=== PATIENT | female | born 1965 | race Caucasian/White ===

== ENCOUNTER 2019-12-09 01:32 | Day surgery (SDC) | payer MEDICARE, SELFPAY ==
[2019-12-06 12:55] VITALS: BMI 37.2
[2019-12-09 09:29] VITALS: BP 140/93; PULSE 85; RESP 20; TEMP 36.7; O2SAT 98
[2019-12-09] MEDS: LACTATED RINGERS 1,000 ML 150 ML IV CONT (09:51)
--- NOTE | 2019-12-09 09:53 | PM.IMHP ---
H&P: HPI History of Present Illness Chief complaint: neoplasm screening Narrative: Hilda Doherty is a 54 year old female presents for colonoscopy. This will serve as her first one. She does report frequent diarrhea over the last year and rarely has a formed stool. She denies any foods that trigger the diarrhea. denies any antibiotics. denies melena, hematochezia. She is having some abdominal discomfort today after she began the colon prep. She does have a family hx of colon cancer in her maternal grandmother diagnose age 80. She does have GERD and has been on omeprazole 20 mg daily. This controls symptoms well. She denies any dysphasia, odynophagia, nausea or vomiting. Review of Systems Review of Systems: All systems reviewed & are unremarkable except as noted in HPI and below PMFSH Past Medical History Medical History (Updated 12/09/19 @ 10:00 by Renee Lincoln, [employer]) Bulging of intervertebral disc between L4 and L5 Cervical vertebral fusion Chronic pain Depression Deviated nasal septum Diarrhea Fibromyalgia GERD (gastroesophageal reflux disease) HTN (hypertension) Hypercholesterolemia Migraines Right-sided low back pain with sciatica Scoliosis Sleep apnea Surgical History Surgical History (Updated 12/09/19 @ 09:59 by Renee Lincoln, [employer]) H/O tubal ligation H/O: Hx of cholecystectomy Hx of neck surgery Family History Family History (Updated 12/09/19 @ 10:00 by Renee Lincoln, [employer] TE[employer]ER) Father Family history of coronary artery disease Acute myocardial infarction Mother Family history of scoliosis Grandparent Carcinoma of colon Other Family history of arthritis Family history of cardiovascular disease Hypertension Social History Social History Smoking status: Smoker, status unknown Second hand tobacco smoke exposure: Yes Smoking end date: 10/13/10 Alcohol intake: current Gender identity (if verbalized by the patient): Female Meds Home Medications and Allergies Home Medications Medication Instructions Recorded Confirmed Type amlodipine 10 mg tablet 10 mg PO DAILY #90 tablet 08/30/19 12/09/19 Rx venlafaxine 100 mg tablet 50 mg PO ONCE #45 tablet 08/30/19 12/09/19 Rx meloxicam 15 mg tablet 15 mg PO DAILY #90 tablet 11/05/19 12/09/19 Rx omeprazole 20 mg capsule,delayed 20 mg PO BID #60 cap 11/05/19 12/09/19 Rx release simvastatin 40 mg tablet 40 mg PO DAILY #90 tablet 11/05/19 12/09/19 Rx Allergies Allergy/AdvReac Type Severity Reaction Status Date / Time lamotrigine Allergy Unknown RASH Verified 12/09/19 09:33 risperidone Allergy Unknown rash Verified 12/09/19 09:33 sulfamethizole Allergy Unknown Unknown Verified 12/09/19 09:33 sulfamethoxazole Allergy Unknown itching Verified 12/09/19 09:33 trimethoprim Allergy Unknown Itching Verified 12/09/19 09:33 Vital Signs Vital Signs - 24 hr 12/09/19 09:29 Temperature 36.7 C Pulse Rate 85 Respiratory Rate 20 Blood Pressure 140/93 H Pulse Oximetry 98 Exam Const: General: cooperative, healthy appearing, comfortable, alert and awake Nutritional Appearance: average body habitus Orientation/consciousness: oriented to person, oriented to place, oriented to time and patient oriented x3 Limitations: no limitations HENMT: Head: normal to inspection and normocephalic Mouth: Yes Normal oral and palatal mucosa present and Yes moist mucous membranes Neck: Neck: normal visual inspection, supple and no JVD Carotids: no bruits Resp: Effort & Inspection: normal respiratory effort and no respiratory distress Auscultation: clear to auscultation bilaterally Cardio: Rate: regular rate Rhythm: regular rhythm Heart sounds: S1 normal heart sound present, S2 normal heart sound present, no gallops, no murmurs and no rubs GI: Inspection: normal to inspection GI Palp: No abdominal tenderness and No No hepatosplenomegaly present Percussion: Yes normal to percussio
--- NOTE | 2019-12-09 09:54 | WPDANESEPPF ---
Anes - Initial Pre Proc Eval Procedure: Operation Date: 12/09/19 09:30 Proposed Procedures p Screening Colonoscopy - James Haley DO Date/Time: 12/09/19 09:54 Surgeon: James Haley DO Pre Op Diagnosis: neoplasm screening Patient Data Age: 54 Gender: F Height: 5 ft 4 in Weight: 91.1 kg Last Vital Signs Temp 36.7 C 12/09/19 09:29 Pulse 85 12/09/19 09:29 Resp 20 12/09/19 09:29 BP 140/93 H 12/09/19 09:29 Pulse Ox 98 12/09/19 09:29 Allergies Allergy/AdvReac Type Severity Reaction Status Date / Time lamotrigine Allergy Unknown RASH Verified 12/09/19 09:33 risperidone Allergy Unknown rash Verified 12/09/19 09:33 sulfamethizole Allergy Unknown Unknown Verified 12/09/19 09:33 sulfamethoxazole Allergy Unknown itching Verified 12/09/19 09:33 trimethoprim Allergy Unknown Itching Verified 12/09/19 09:33 Home Medications Medication Instructions Recorded Confirmed Type amlodipine 10 mg tablet 10 mg PO DAILY #90 tablet 08/30/19 12/09/19 Rx venlafaxine 100 mg tablet 50 mg PO ONCE #45 tablet 08/30/19 12/09/19 Rx meloxicam 15 mg tablet 15 mg PO DAILY #90 tablet 11/05/19 12/09/19 Rx omeprazole 20 mg capsule,delayed 20 mg PO BID #60 cap 11/05/19 12/09/19 Rx release simvastatin 40 mg tablet 40 mg PO DAILY #90 tablet 11/05/19 12/09/19 Rx Patient hx anesthesia problems: none Family hx anesthesia problems: none PMFSH Past Medical History Medical History Bulging of intervertebral disc between L4 and L5 Cervical vertebral fusion Chronic pain Depression Deviated nasal septum Fibromyalgia GERD (gastroesophageal reflux disease) HTN (hypertension) Hypercholesterolemia Migraines Right-sided low back pain with sciatica Scoliosis Sleep apnea Surgical History Surgical History H/O tubal ligation H/O: Family History Family History Father Family history of coronary artery disease Acute myocardial infarction Mother Family history of scoliosis Other Family history of arthritis Family history of cardiovascular disease Hypertension Social History Social History Smoking status: Smoker, status unknown Second hand tobacco smoke exposure: Yes Smoking end date: 10/13/10 Alcohol intake: current Gender identity (if verbalized by the patient): Female Anes - Eval Final PreProcedure Day of Procedure 12/09/19 09:54 Patient weight: obese Heart: regular rate and rhythm Lungs: clear to auscultation Airway: Mallampati scale class II Neurological: alert and oriented Last oral intake: >/= 8 hours ASA classification: III Emergent: no Anesthetic plan: proceed Anesthesia type and monitoring: general GIVS and standard monitoring Informed Consent: The patient's anesthetic plan and its attendant risks and benefits were discussed with the patient/family/POA. Questions were solicited and answers provided to the satisfaction of the patient/family/POA.
[2019-12-09 10:35] VITALS: BP 109/73; PULSE 73; RESP 18; O2SAT 94
[2019-12-09 10:45] VITALS: BP 109/73; PULSE 66; RESP 15; O2SAT 96
[2019-12-09 10:55] VITALS: BP 119/79; PULSE 63; RESP 12; O2SAT 99
== END 2019-12-09 11:07 | disposition home or self-care (01) ==
PROVIDERS: PCP Family Medicine; Visit Provider Internal Medicine Gastroenterology
PROC: 0DJD8ZZ Inspection of Lower Intestinal Tract, Via Natural or Artificial Opening Endoscopic (ICD-10-PCS; CPT 45378; principal; 2019-12-09 09:30)
DX: Z12.11 Encounter for screening for malignant neoplasm of colon (principal); K52.9 Noninfective gastroenteritis and colitis, unspecified; D12.2 Benign neoplasm of ascending colon; K64.8 Other hemorrhoids; Z80.0 Family history of malignant neoplasm of digestive organs; I10 Essential (primary) hypertension; E78.00 Pure hypercholesterolemia, unspecified; G47.30 Sleep apnea, unspecified; K21.9 Gastro-esophageal reflux disease without esophagitis; M79.7 Fibromyalgia; F32.9 Major depressive disorder, single episode, unspecified; Z98.1 Arthrodesis status; G89.29 Other chronic pain
CPT/HCPCS: 45380; 88305; J2704; J7120

== ENCOUNTER 2021-02-04 12:05 | Emergency (ER) | payer MEDICARE, SELFPAY ==
--- NOTE | ~2021-02-04 | XR_ITS ---
EXAMINATION: XR finger 1st LT min 2V DATE: 02/04/2021 12:33 INDICATION: Left thumb injury. TECHNIQUE: 3 views of left thumb were obtained. COMPARISON: None. FINDINGS: Bone alignment is normal. No fracture. There is mild osteoarthritis of first carpometacarpa l joint and first metacarpophalangeal joint. IMPRESSION: 1. No fracture. Reviewed, dictated and finalized at location A. IMPRESSION: 1. No fracture.
[2021-02-04 12:16] VITALS: BP 137/82; PULSE 89; RESP 16; TEMP 36.4; O2SAT 99
--- NOTE | 2021-02-04 12:17 | ED.UPPEXIN ---
HPI - Extremity Injury (Upper) General Chief Complaint: Extremity Injury, Lower Stated Complaint: left thumb pain Time Seen by Provider: 02/04/21 12:17 Source: patient Mode of arrival: ambulatory Limitations: no limitations History of Present Illness HPI narrative: Hilda Doherty is a 55 yo female with a PMH of HTN, GERD, high cholesterol, depression, who comes with complaints of left thumb pain after playing with dog 5 days ago; states pain is 7/10 Related Data Home Medications Medication Instructions Recorded Confirmed meloxicam 15 mg PO DAILY 02/04/21 02/04/21 omeprazole 20 mg PO DAILY 02/04/21 02/04/21 Allergies Allergy/AdvReac Type Severity Reaction Status Date / Time lamotrigine Allergy Unknown RASH Verified 02/04/21 12:18 risperidone Allergy Unknown rash Verified 02/04/21 12:18 sulfamethizole Allergy Unknown Unknown Verified 02/04/21 12:18 sulfamethoxazole Allergy Unknown itching Verified 02/04/21 12:18 trimethoprim Allergy Unknown Itching Verified 02/04/21 12:18 Review of Systems Review of Systems: Narrative: CONSTITUTIONAL: Denies fever, chills, sweats. EYES: Denies visual changes, redness, discharge. ENT: Denies rhinorrhea, congestion, sore throat, otalgia. CARDIOVASCULAR: Denies chest pain, palpitations, edema. RESPIRATORY: Denies dyspnea, wheezing, cough GASTROINTESTINAL: Denies abdominal pain, nausea, vomiting, diarrhea. GENITOURINARY: Denies dysuria, hematuria, abnormal discharge SKIN: Denies rash or itching. NEUROLOGIC: Denies numbness, or focal weakness. PSYCHIATRIC: Denies anxiety or depression. Left thumb pain PMFSH Past Medical History Medical History Bulging of intervertebral disc between L4 and L5 Cervical vertebral fusion Chronic pain Depression Deviated nasal septum Diarrhea Fibromyalgia GERD (gastroesophageal reflux disease) HTN (hypertension) Hypercholesterolemia Migraines Right-sided low back pain with sciatica Scoliosis Sleep apnea Surgical History Surgical History H/O colonoscopy with polypectomy (~11/2019) Dr Haley at [place] H/O tubal ligation H/O: Hx of cholecystectomy Hx of neck surgery Family History Family History Father Family history of coronary artery disease Acute myocardial infarction Mother Family history of scoliosis Grandparent Carcinoma of colon Other Family history of arthritis Family history of cardiovascular disease Hypertension Social History Social History (Updated 02/04/21 @ 12:25 by Stefania Mcdowell CNP) Smoking status: Former smoker Second hand tobacco smoke exposure: Yes Smoking end date: 10/13/10 Alcohol intake: current Gender identity (if verbalized by the patient): Female Comments At time of signature, I agree with nursing past medical, surgical, social and family history. There is no relevant family history pertinent to the presenting complaint. Exam Narrative: Exam Narrative: GENERAL: This is a well-nourished, well-developed patient, in mild distress. HEAD: normocephalic, atraumatic. EYES: Sclera clear/white. Vision is grossly intact. EARS: External ears normal. Hearing grossly intact. NOSE: External nose normal without nasal discharge, nares without redness, no rhinorrhea. THROAT: Mucous membranes moist, NECK: Neck supple, non-tender CARDIOVASCULAR: Regular rate and rhythm without murmurs, gallops, or rubs. RESPIRATORY: Clear to auscultation. Breath sounds equal bilaterally. No wheezes, rales, or rhonchi. GASTROINTESTINAL: Abdomen soft, non-tender, SKIN: warm, intact with no suspicious lesions or rash, good texture and turgor. NEURO: awake, alert, and oriented to person, place and time. There were no obvious focal neurologic abnormalities. Steady gait EXTREMITIES: Normal range of motion. L thunb pain from remote injury,able to move sanchez
== END 2021-02-04 13:13 | disposition home or self-care (01) ==
PROVIDERS: Emergency Provider Nurse Practitioner
DX: S69.92XA Unspecified injury of left wrist, hand and finger(s), initial encounter (principal); X58.XXXA Exposure to other specified factors, initial encounter; Z87.891 Personal history of nicotine dependence; F32.9 Major depressive disorder, single episode, unspecified; M79.7 Fibromyalgia; K21.9 Gastro-esophageal reflux disease without esophagitis; I10 Essential (primary) hypertension; E78.00 Pure hypercholesterolemia, unspecified; M41.9 Scoliosis, unspecified; G47.30 Sleep apnea, unspecified
CPT/HCPCS: 29130; 73140; 99213; G0463

== ENCOUNTER 2021-02-28 12:49 | Emergency (ER) | payer MEDICARE, SELFPAY ==
--- NOTE | ~2021-02-28 | XR_ITS ---
EXAMINATION: XR shoulder RT min 2V DATE: 02/28/2021 13:46 INDICATION: Right shoulder injury and pain. TECHNIQUE: 4 views of right shoulder were obtained. COMPARISON: Right shoulder radiographs 08/19/2011 FINDINGS: Bone alignment is normal. No fracture. Glenohumeral joint is normal. There is moderate acro mioclavicular joint osteoarthritis. IMPRESSION: 1. Moderate acromioclavicular joint osteoarthritis. Reviewed, dictated and finalized at location A.
[2021-02-28 13:14] VITALS: BP 134/81; PULSE 81; RESP 18; TEMP 36.7; O2SAT 97
--- NOTE | 2021-02-28 14:10 | ED.GENADULT ---
HPI - General Adult General Chief complaint: Extremity Injury, Upper Stated complaint: hit right shoulder on wall- sharp pain 8 days ago Time Seen by Provider: 02/28/21 13:20 Source: patient and RN notes reviewed Mode of arrival: ambulatory Limitations: no limitations History of Present Illness HPI narrative: Patient 55-year-old female who presents with right shoulder pain has been present now for 1 week after striking it on the shoulder notes aching pain which has not improved has not been seen for this complaint denies other injuries presents in no distress Related Data Home Medications Medication Instructions Recorded Confirmed meloxicam 15 mg PO DAILY 02/04/21 02/08/21 Allergies Allergy/AdvReac Type Severity Reaction Status Date / Time lamotrigine Allergy Unknown RASH Verified 02/08/21 09:41 risperidone Allergy Unknown rash Verified 02/08/21 09:41 sulfamethizole Allergy Unknown Unknown Verified 02/08/21 09:41 sulfamethoxazole Allergy Unknown itching Verified 02/08/21 09:41 trimethoprim Allergy Unknown Itching Verified 02/08/21 09:41 Review of Systems Review of Systems: All systems reviewed & are unremarkable except as noted in HPI and below PMFSH Past Medical History Medical History Bulging of intervertebral disc between L4 and L5 Cervical vertebral fusion Chronic pain Depression Deviated nasal septum Diarrhea Fibromyalgia GERD (gastroesophageal reflux disease) HTN (hypertension) Hypercholesterolemia Migraines Right-sided low back pain with sciatica Scoliosis Sleep apnea Surgical History Surgical History H/O colonoscopy with polypectomy (~11/2019) Dr Haley at [place] H/O tubal ligation H/O: Hx of cholecystectomy Hx of neck surgery Family History Family History Father Family history of coronary artery disease Acute myocardial infarction Mother Family history of scoliosis Grandparent Carcinoma of colon Other Family history of arthritis Family history of cardiovascular disease Hypertension Social History Social History Smoking status: Former smoker Second hand tobacco smoke exposure: Yes Smoking end date: 10/13/10 Alcohol intake: current Gender identity (if verbalized by the patient): Female Exam Narrative: Exam Narrative: GENERAL: Well-appearing, well-nourished, and in no acute distress. HEAD: Normocephalic, atraumatic. EYES: PERRLA and EOMI. ENT: Nares clear, no rhinorrhea or epistaxis. Mucous membranes moist. CHEST: Clear to auscultation. No respiratory distress. No wheezes rales or rhonchi HEART: Regular rate and rhythm. No murmur heard. Normal peripheral pulses. EXTREMITIES: Tenderness of the anterior right shoulder no deformities noted SKIN: Warm, dry, no rash. NEURO: No focal deficits. Alert and oriented x3. Neurovascularly intact. Capillary refill less than 2 seconds PSYCH: Normal mood and affect. Course Course Emergency Course: Patient evaluated no high risk changes in the imaging will be referred to orthopedist for further evaluation Vital Signs Vital signs: Vital Signs Temperature 98.1 F 02/28/21 13:14 Pulse Rate 81 02/28/21 13:14 Respiratory Rate 18 02/28/21 13:14 Blood Pressure 134/81 02/28/21 13:14 Pulse Oximetry 97 02/28/21 13:14 Temperature 98.1 F 02/28/21 13:14 Pulse Rate 81 02/28/21 13:14 Respiratory Rate 18 02/28/21 13:14 Blood Pressure 134/81 02/28/21 13:14 Pulse Oximetry 97 02/28/21 13:14 Medical Decision Making [facility] Narrative Medical decision making narrative: Patients injury or pain is consistent with musculoskeletal etiology. No signs of neurological or vascular compromise on exam. Compartments and tisues are soft without signs of compartment syndrome. Pain is felt
== END 2021-02-28 14:37 | disposition home or self-care (01) ==
PROVIDERS: Emergency Provider Emergency Medicine; PCP Family Medicine
DX: S49.91XA Unspecified injury of right shoulder and upper arm, initial encounter (principal); X58.XXXA Exposure to other specified factors, initial encounter; M79.7 Fibromyalgia; K21.9 Gastro-esophageal reflux disease without esophagitis; I10 Essential (primary) hypertension; M41.9 Scoliosis, unspecified; G47.30 Sleep apnea, unspecified
CPT/HCPCS: 73030; 99283

== ENCOUNTER 2023-05-20 17:27 | Emergency (ER) | payer MEDICARE, SELFPAY ==
--- NOTE | ~2023-05-20 | XR_ITS ---
EXAM: XR finger 1st LT min 2V DATE: 05/20/2023 17:45 HISTORY: base left thumb pain s/p fall 3 days ago . COMPARISON: 02/04/2021. FINDINGS: Decreased mineralization. No fracture or dislocation. No lytic or blastic lesion. Mild sca ttered degenerative changes. No erosion or periosteal change. Soft tissues within normal limits. IMPRESSION: No acute osseous finding in the left thumb. Reviewed, dictated and finalized at location K.
[2023-05-20 17:36] VITALS: BP 130/78; PULSE 80; RESP 16; TEMP 37.4; O2SAT 99
--- NOTE | 2023-05-20 17:41 | ED.UPPEXIN ---
HPI - Extremity Injury (Upper) General Chief Complaint: Extremity Injury, Upper Stated Complaint: Left Hand Thumb Pain Source: patient Mode of arrival: ambulatory Limitations: no limitations History of Present Illness HPI narrative: 57 y/o female presented for c/o left thumb pain after injury 3 nights ago. [place], reaching her left arm behind her to break the fall. Reports swelling and bruising to the base of the thumb, with limited ROM due to pain. Gripping movements cause pain. Reports pain shoots to mid forearm. Denies numbness, tingling, or weakness of the hand. Taking meloxicam as scheduled. Has added Tylenol for pain. Related Data Allergies Allergy/AdvReac Type Severity Reaction Status Date / Time lamotrigine Allergy Unknown RASH Verified 05/20/23 17:44 risperidone Allergy Unknown rash Verified 05/20/23 17:44 sulfamethizole Allergy Unknown Unknown Verified 05/20/23 17:44 sulfamethoxazole Allergy Unknown itching Verified 05/20/23 17:44 trimethoprim Allergy Unknown Itching Verified 05/20/23 17:44 Review of Systems Review of Systems: CONSTITUTIONAL: Denies body aches, fever, chills EYES: Denies visual changes ENT: Denies rhinorrhea, congestion CARDIOVASCULAR: Denies chest pain, palpitations, or edema. RESPIRATORY: Denies cough or dyspnea. GASTROINTESTINAL: Denies abdominal pain, nausea, vomiting, or diarrhea. SKIN: Denies rash, itching, or wounds. MUSCULOSKELETAL: Reports left thumb pain denies back pain, or myalgia. NEUROLOGIC: Denies headache, numbness, tingling, or weakness. PSYCH: Denies depression or anxiety. All systems reviewed & are unremarkable except as noted in HPI and below PMFSH Past Medical History Medical History Anxiety Bulging of intervertebral disc between L4 and L5 Cervical spondylosis with radiculopathy Cervical vertebral fusion Depression Deviated nasal septum Fibromyalgia GERD (gastroesophageal reflux disease) HTN (hypertension) Hypercholesterolemia Impingement syndrome of right shoulder Intermittent low back pain Migraines Right-sided low back pain with sciatica Scoliosis Sleep apnea Vitamin D deficiency Wears glasses Surgical History Surgical History H/O colonoscopy with polypectomy (~11/2019) Dr Haley at [place] H/O tubal ligation (Unknown) H/O: (~1995) History of fusion of cervical spine (~2007) History of left knee surgery (~08/2018) Chondroplasty of the patella, trochlea, and medial femoral condyle, Lateral retinacular release. History of nasal septoplasty (~11/2014) History of right knee surgery (~10/2015) Right knee arthroscopy with major synovectomy, chondroplasty, and lateral patellar release. Hx of cholecystectomy (~2011) Family History Family History Father Family history of coronary artery disease Acute myocardial infarction Mother Family history of scoliosis Grandparent Carcinoma of colon Other Family history of arthritis Family history of cardiovascular disease Hypertension Social History Social History Smoking packs per day: 0.25 Smoking cigarettes per day: 5.0 Smoking status: Former smoker Second hand tobacco smoke exposure: Yes Smoking end date: 12/03/20 Alcohol intake: never Substance use: current Substance use type: marijuana Other substance usage details: Medical card Lack of Transportation: No Lack of Food: Never True Current Housing: I Have Housing Concerned About Future Housing: No Difficulty Paying Gas/Electric Bills: No Difficulty Paying for Meds: No Currently Unemployed: No Education: High School Diploma/GED Difficulty w/ Childcare or Family Care: No Living arrangements: with family Additional living arrangements comments:
[2023-05-20 17:44] VITALS: BP 130/78; PULSE 80; RESP 16; TEMP 37.4; O2SAT 99
== END 2023-05-20 18:22 | disposition home or self-care (01) ==
PROVIDERS: Emergency Provider Nurse Practitioner Family; PCP Family Medicine
DX: S63.602A Unspecified sprain of left thumb, initial encounter (principal); W19.XXXA Unspecified fall, initial encounter; Y93.11 Activity, swimming; M79.7 Fibromyalgia; K21.9 Gastro-esophageal reflux disease without esophagitis; I10 Essential (primary) hypertension; E78.00 Pure hypercholesterolemia, unspecified; M41.9 Scoliosis, unspecified; Z87.891 Personal history of nicotine dependence; F12.90 Cannabis use, unspecified, uncomplicated
CPT/HCPCS: 73140; 99213; G0463

== ENCOUNTER → 2023-06-09 10:09 | Outpatient (CLI) | payer MEDICARE, SELFPAY ==
--- NOTE | ~2023-06-09 | XR_ITS ---
XR foot LT 2V DATE: 06/09/2023 10:19 INDICATION: Injury. Fifth toe pain. TECHNIQUE: 3 views COMPARISON: None FINDINGS: Prominent plantar calcaneal enthesopathy. Minimal osteoarthritis at the first metatarsophalangeal joint. No fracture or dislocation, periosteal reaction or bone destruction is detected. IMPRESSION: Prominent plantar calcaneal enthesopathy No fracture or dislocation Reviewed, dictated and finalized at location B.
== END ==
PROVIDERS: PCP Nurse Practitioner Family; Visit Provider Nurse Practitioner Family
DX: S99.922A Unspecified injury of left foot, initial encounter (principal); X58.XXXA Exposure to other specified factors, initial encounter; M77.32 Calcaneal spur, left foot
CPT/HCPCS: 73620

== ENCOUNTER 2023-08-21 13:09 | Outpatient (CLI) | payer MEDICARE, SELFPAY ==
--- NOTE | ~2023-08-21 | MR_ITS ---
EXAMINATION: MR hand LT wo con DATE: 08/21/2023 14:51 INDICATION: Left hand pain with sprain of the metacarpophalangeal joint and rupture of the ulnar lyndon ateral ligament. TECHNIQUE: Magnetic resonance imaging (MRI) of the right hand was performed without intravenous contr ast . Sequences included large [id number] coronal T1-weighted FSE and T2-weighted FS FSE including the entire hand. Additional smaller field of view imaging was obtained centered on and aligned with the axis of the left thumb including axial, sagittal and coronal T1-weighted FSE, axial and sagittal T2-weighted FS FSE and coronal PD-weighted FS FSE . COMPARISON: None FINDINGS: Thickening and increased signal of the ulnar collateral ligament at the first metacarpophalangeal kinjal nt. Prominent increased signal approaching fluid intensity along the proximal phalangeal 7 insertion of the ligament consistent with at least high-grade partial if not complete tear. The ligament which appears thickened and somewhat lax on the coronal images does not appear to reflect approximately and remains deep to the intact abductor aponeurosis. The radial collateral ligament complex at the first metacarpophalangeal joint remains normal. As do on the larger [id number] images the collateral li gament complex at the remaining metacarpophalangeal joints and the interphalangeal joints. Bone align ment is normal with normal marrow signal throughout. Joint spaces appear relatively preserved. The vi sualized portions of the flexor and extensor tendons are normal with no tendinopathy, tear or tenosyn ovitis. Physiologic amount fluid in the joint spaces. There is mild likely reactive edema in the subc utaneous fat surrounding the first metacarpophalangeal joint. IMPRESSION: 1. Likely high-grade partial if not complete tear at the distal margin of the first metacarpophalange al ulnar collateral ligament but which remains in normal position with no Stenner lesion. Reviewed, dictated and finalized at location A. OR COMMUNICATIONS ENGINEER IMPRESSION: 1. Likely high-grade partial if not complete tear at the distal margin of the f irst metacarpophalangeal ulnar collateral ligament but which remains in normal position with no Stenner lesion.
== END 2023-08-21 13:10 | disposition home or self-care (01) ==
PROVIDERS: PCP Nurse Practitioner Family; Visit Provider Orthopaedic Surgery
DX: S63.659A Sprain of metacarpophalangeal joint of unspecified finger, initial encounter (principal); X58.XXXA Exposure to other specified factors, initial encounter
CPT/HCPCS: 73218

== ENCOUNTER 2023-09-19 08:47 | Outpatient (CLI) | payer MEDICARE, SELFPAY ==
--- NOTE | 2023-09-19 08:55 | ECG_ITS ---
Measurements Intervals Treichlers Rate: 69 P: 54 NV: 140 QRS: 33 QRSD: 102 T: 55 QT: 398 QTc: 428 Interpretive Statements SINUS RHYTHM NO PREVIOUS ECG AVAILABLE FOR COMPARISON Electronically Signed On 09-19-2023 10:46:28 DERRICK BARGE OPERATOR by Miguel Ángel Lr M.D.
== END 2023-09-19 08:48 | disposition home or self-care (01) ==
LOC: ANHSURGERY 08:52
PROVIDERS: PCP Nurse Practitioner Family; Visit Provider Orthopaedic Surgery
DX: I10 Essential (primary) hypertension (principal); Z01.818 Encounter for other preprocedural examination
CPT/HCPCS: 93005

== ENCOUNTER 2023-09-22 02:55 | Day surgery (SDC) | payer MEDICARE, SELFPAY ==
[2023-09-18 14:29] VITALS: BMI 35.5
--- NOTE | 2023-09-18 14:39 | PC.NURSE ---
Report to the Outpatient Waiting Room, entrance under the green pavilion located off [facility], at time _0600_ on date _09/22/23_. Planned Procedure Time: _0730_. Time changes happen often and if your time is changed the preop area will call you the afternoon before. - You and your visitor will be asked to self-screen and do not enter if you have any COVID symptoms. - A mask is optional within the hospital at this time. Patients may have clear liquids (water, carbonated beverages, clear teas, apple juice) until 3 hours prior to surgery with a maximum of 20 ounces. - No food from midnight until time of surgery - Infants may have breast milk until 4 hours before surgery, infant formula 6 hours prior to surgery. - Children will be allowed to drink immediately following surgery. If applicable, please bring a bottle or sippy cup to assist with drinking. Juice, water, soda, and popsicles are readily available. For infants on formula, please bring formula the day of surgery. Pacifiers are allowed. Take the following medications with a SIP of water the morning of surgery: ____AMLODIPINE, XANAX AND VENLAFEXINE IF NEEDED DO NOT STOP ANY OF YOUR OTHER PRESCRIPTION MEDICATIONS PRIOR TO SURGERY ?EXCEPT THE FOLLOWING Medications to discontinue per physician MELOXICAM 1 WK Date to take last dose Please no make-up, nail kyrgyz, hairspray, perfume, deodorant, or body powder the day of surgery. No jewelry (including any body piercings) or valuables the day of surgery, leave them at home. Please take a shower or bath the night before, or the morning of, surgery with an antibacterial soap. Wear comfortable, loose fitting clothing. Children are encouraged to wear pajamas. - Jewelry must be removed prior to entering the operating room. Rings and piercings that are not removed may be cut off. - The hospital will not accept responsibility for valuables. - Please leave all valuables, including medications, at home the day of surgery. If you are going home after surgery, a licensed grab driver must drive you home. - NO public transportation without another adult if you receive anesthesia. - We recommend that an adult stay with you for 24 hours following discharge. - We also recommend that you do not drive, make important decision, drink alcoholic beverages, or take any drugs that were not prescribed by your health care provider for at least 24 hours after your discharge time. For Pediatric surgeries, we recommend two adults accompany the child home. Follow any additional instructions given to you from your surgeon. If you or anyone in your household have experienced Covid symptoms in the past week, please notify your surgeon or the nurse liaison at the phone number below for possible testing. Telephone instructions given to PATIENT_and asked if any additional questions and then verbalized understanding. Patient advised to call surgeon office or pre surgery nurse liaison [phone] if any additional questions.
[2023-09-22] VITALS (9 sets, daily range): BP systolic 109–139; BP diastolic 61–98; PULSE 66–78; RESP 13–17; TEMP 36.2–36.4; O2SAT 96–99
[2023-09-22] MEDS: LACTATED RINGERS 1,000 ML 30 ML IV CONT ×2 (06:30→08:59)
[2023-09-22] MEDS: ACETAMINOPHEN 500 MG TABLET 1000 MG PO (06:34)
[2023-09-22] MEDS: KETOROLAC 15 MG/ML VIAL (*BKC) IV PUSH (06:34)
--- NOTE | 2023-09-22 06:56 | WPDANESEPPF ---
Anes - Initial Pre Proc Eval Procedure: Operation Date: 09/22/23 07:30 Proposed Procedures p Left Thumb Ulnar Collateral Ligament Reconstruction - Arpan Mckeon MD Date/Time: 09/22/23 06:56 Surgeon: Arpan Mckeon MD Pre Op Diagnosis: Lt Thumb U C L Tear Patient Data Age: 57 Gender: F Height: 1.63 m Weight: 94.3 kg Last Vital Signs Temp 36.2 C L 09/22/23 06:15 Pulse 78 09/22/23 06:15 Resp 16 09/22/23 06:15 BP 139/98 H 09/22/23 06:15 Pulse Ox 96 09/22/23 06:15 O2 Del Method Room Air 09/22/23 06:15 Allergies Allergy/AdvReac Type Severity Reaction Status Date / Time lamotrigine Allergy Unknown RASH Verified 09/22/23 06:20 risperidone Allergy Unknown rash Verified 09/22/23 06:20 sulfamethizole Allergy Unknown Unknown Verified 09/22/23 06:20 sulfamethoxazole Allergy Unknown itching Verified 09/22/23 06:20 trimethoprim Allergy Unknown Itching Verified 09/22/23 06:20 Home Medications Medication Instructions Recorded Confirmed Type amlodipine 10 mg tablet 10 mg PO DAILY #90 tabs 03/25/23 09/22/23 Rx meloxicam 15 mg tablet 15 mg PO DAILY #90 tabs 03/25/23 09/22/23 Rx simvastatin 40 mg tablet 40 mg PO QHS #90 tabs 03/25/23 09/22/23 Rx alprazolam 0.25 mg tablet (Xanax) 0.25 mg PO DAILY #30 tabs 06/09/23 09/22/23 Rx omeprazole 20 mg capsule,delayed 20 mg PO DAILY #90 caps 06/09/23 09/22/23 Rx release venlafaxine 100 mg tablet 100 mg PO DAILY #90 tabs 09/01/23 09/22/23 Rx Patient hx anesthesia problems: none Family hx anesthesia problems: none Results Review: All pre-operative results and documents have been reviewed as part of the pre-operative evaluation. [facility] Past Medical History Medical History Anxiety Bulging of intervertebral disc between L4 and L5 Cervical spondylosis with radiculopathy Cervical vertebral fusion Complete tear of ligament of thumb Depression Deviated nasal septum Fibromyalgia GERD (gastroesophageal reflux disease) HTN (hypertension) Hypercholesterolemia Impingement syndrome of right shoulder Intermittent low back pain Migraines Right-sided low back pain with sciatica Rupture of UCL of left thumb Rupture of ulnar collateral ligament of thumb Scoliosis Sleep apnea Vitamin D deficiency Wears glasses Surgical History Surgical History H/O colonoscopy with polypectomy (~11/2019) Dr Haley at [place] H/O tubal ligation (Unknown) H/O: (~1995) History of fusion of cervical spine (~2007) History of left knee surgery (~08/2018) Chondroplasty of the patella, trochlea, and medial femoral condyle, Lateral retinacular release. History of nasal septoplasty (~11/2014) History of right knee surgery (~10/2015) Right knee arthroscopy with major synovectomy, chondroplasty, and lateral patellar release. Hx of cholecystectomy (~2011) Family History Family History Father Family history of coronary artery disease Acute myocardial infarction Mother Family history of scoliosis Grandparent Carcinoma of colon Other Family history of arthritis Family history of cardiovascular disease Hypertension Social History Social History Social History: Caffeine- Smoking packs per day: 0.5 Smoking cigarettes per day: 10.0 Years smoked: 34 Smoking pack-years: 17.00 Smoking status: Former smoker Tobacco type: cigarettes and e-cigarettes/vaping Second hand tobacco smoke exposure: Yes Smoking end date: 12/03/20 Additional smoking assessment comments: STOPPED CIGARETTES 2019, CURRENT VAPE USER Alcohol intake: current Alcohol use details: RARE Substance use: current Substance use type: marijuana Other substance usage details: 3-4 TIMES A DAY Lack of Transportation: No Lack of Food: Never True Cur
--- NOTE | 2023-09-22 07:28 | WPDHPUPDATE1 ---
History and Physical Update Update Date/Time: 09/22/23 07:28 History and Physical has been reviewed, including an updated exam of the patient. There are NO changes in the patient's condition. Risks, benefits, and alternatives have been discussed and questions answered. Patient agrees to proceed with procedure.
[2023-09-22] MEDS: ceFAZolin 2 GM/D5W 50 ML 2 GM/50 ML BAG IVPB (07:50)
[2023-09-22] MEDS: BUPivacaine HCL 0.5% PF 30 ML VIAL INFILTRATE (07:52)
--- NOTE | 2023-09-22 09:02 | W.PM.PROC2 ---
Procedure Note - Detailed Date of Procedure 09/22/23 Pre-op Diagnosis Lt Thumb U C L Tear Post-op Diagnosis Same Procedure Performed Reconstruction left thumb ulnar collateral ligament metacarpal phalangeal joint. Surgeon Arpan Mckeon MD Engineer [employer] Maintenance 1[employer] perinatal breastfeeding assistant Anesthesia General Indications 57-year-old woman with fall and injury to the left thumb. MRI demonstrates tear of the ulnar collateral ligament. Pain and instability noted on exam. Presents for operative treatment. Findings Disruption of the ulnar collateral ligament from the proximal phalanx of the left thumb. Description of Procedure Patient identified in the preoperative holding. Informed consent given. Operative extremity marked. Patient received intravenous antibiotics. Patient brought to the operating room where underwent general anesthetic by anesthesia team. Positioned supine on operating room table. Time-out performed confirming the patient, site of the surgery and the plan. Left hand prepped draped usual sterile surgical fashion ChloraPrep skin solution. Hand exsanguinated and arm tourniquet inflated to 250 mmHg. Local anesthetic with 0.5% Marcaine plain. Longitudinal incision made on the ulnar aspect of the thumb metacarpophalangeal joint with a 15 blade knife. Hemostasis controlled electrocautery. Dissection carried down to the capsule which was incised in line with the skin incision. This allowed visualization of the ulnar collateral ligament which was torn and disrupted from the insertion on the proximal phalanx. Scar tissue was sharply debrided. The wound was inspected and noted otherwise be intact. Reconstruction ligament was then performed. 2.5 mm drill for the proximal phalanx and the suture anchor SwiveLock was placed with the suture and internal brace tape. Suture was passed through the ligament and direct repair back to the proximal phalanx was performed. The internal brace was then brought over the ligament and attached to the metacarpal bone with 3.0 mm SwiveLock. Good fixation noted. The joint was held in approximately 30? of flexion for the repair. Joint was noted to be stable. Wound thoroughly irrigated the capsule closed with 3-0 Monocryl interrupted suture. Subcutaneous tissue repaired with 3-0 Monocryl interrupted suture and skin repaired with Dermabond. Sterile dressing applied. Tourniquet released, good capillary refill noted in the thumb and fingers. The patient was then woken from anesthesia, extubated and taken to the recovery room in stable condition. All sponge, needle, instrument counts were correct at the end of the case. Implants SwiveLock anchor x2 Estimated Blood Loss 5 Tourniquet Time 58 Drains No Packing No Pathology None sent Complications None Condition Stable Disposition PACU [facility] Billing Surgery - Charge Forward: Surgery Billing ([id number])
[2023-09-22] MEDS: oxyCODONE HCL (*CRX) 5 MG TAB IR PO (10:00)
== END 2023-09-22 10:52 | disposition home or self-care (01) ==
PROVIDERS: PCP Nurse Practitioner Family; Visit Provider Orthopaedic Surgery
PROC: (CPT 26541; principal; 2023-09-22 07:30)
DX: S63.642A Sprain of metacarpophalangeal joint of left thumb, initial encounter (principal); S53.32XA Traumatic rupture of left ulnar collateral ligament, initial encounter; W16.112A Fall into natural body of water striking water surface causing other injury, initial encounter; I10 Essential (primary) hypertension; E78.00 Pure hypercholesterolemia, unspecified; F41.9 Anxiety disorder, unspecified; F32.A Depression, unspecified; K21.9 Gastro-esophageal reflux disease without esophagitis; Z98.1 Arthrodesis status; F17.290 Nicotine dependence, other tobacco product, uncomplicated; F12.90 Cannabis use, unspecified, uncomplicated; E66.9 Obesity, unspecified; Z68.35 Body mass index [BMI] 35.0-35.9, adult
CPT/HCPCS: 26541; 93005; A9270; C1713; J0690; J1100; J1885; J2250; J2371; J2405; J2704; J7120

== ENCOUNTER 2024-12-24 13:46 | Emergency (ER) | payer MEDICARE, SELFPAY ==
--- NOTE | 2024-12-24 13:52 | ED_ITS ---
HPI - Ear Problem General Chief complaint: Ear Stated complaint: Ear Time Seen by Provider: 12/24/24 14:05 Source: patient Mode of arrival: ambulatory Limitations: no limitations History of Present Illness HPI Narrative: Hilda is a 59-year-old female patient presenting to the clinic today with complaints of left ear pain x3 days. States she is having swelling behind her ear with some pain/pressure to the side of her head. No fevers, chills, body aches. Related Data Allergies Allergy/AdvReac Type Severity Reaction Status Date / Time lamotrigine Allergy Unknown RASH Verified 10/22/24 09:57 risperidone Allergy Unknown rash Verified 10/22/24 09:57 sulfamethizole Allergy Unknown Unknown Verified 10/22/24 09:57 sulfamethoxazole Allergy Unknown itching Verified 10/22/24 09:57 trimethoprim Allergy Unknown Itching Verified 10/22/24 09:57 Review of Systems Review of Systems: Pertinent positives per HPI. Patient denies any fever, chills, rash, headache, visual changes, dizziness, cough, shortness of breath, chest pain, palpitations, nausea, vomiting, diarrhea, constipation, abdominal pain, or any urinary issues. [facility] Past Medical History Medical History BMI over 35 Fibromyalgia Tobacco abuse Sprain of deltoid ligament of left ankle, initial encounter Sleep apnea in adult RLQ abdominal pain Right ankle instability Peroneal tendinitis of right lower extremity Patellar tendinitis of right knee Paronychia of finger of right hand Pain of left clavicle Other specified depressive episodes Other chronic pain Obesity, unspecified (12/04/16) Nasal sore Morbid (severe) obesity due to excess calories (09/04/16) Left elbow pain Internal derangement of right knee (10/31/15) Hyperlipidemia, unspecified History of shingles Frequent headaches Encounter for other specified surgical aftercare Effusion of right knee Dietary counseling and surveillance (08/10/15) Depression with anxiety Colon cancer screening Chronic pain of right ankle Chondromalacia of left knee Breast cancer screening Benign essential hypertension Atelectasis of both lungs Aftercare following surgery of the musculoskeletal system Acute pain of left shoulder Rupture of ulnar collateral ligament of thumb Rupture of UCL of left thumb Complete tear of ligament of thumb Vitamin D deficiency Intermittent low back pain Cervical spondylosis with radiculopathy Anxiety Wears glasses Impingement syndrome of right shoulder Right-sided low back pain with sciatica Depression Bulging of intervertebral disc between L4 and L5 Scoliosis Cervical vertebral fusion GERD (gastroesophageal reflux disease) Sleep apnea Hypercholesterolemia HTN (hypertension) Fibromyalgia Migraines Deviated nasal septum Surgical History Surgical History History of thumb surgery History of nasal septoplasty (~11/2014) History of right knee surgery (~10/2015) Right knee arthroscopy with major synovectomy, chondroplasty, and lateral patellar release. History of left knee surgery (~08/2018) Chondroplasty of the patella, trochlea, and medial femoral condyle, Lateral retinacular release. History of fusion of cervical spine (~2007) H/O colonoscopy with polypectomy (~11/2019) Dr Haley at [facility] of cholecystectomy (~2011) H/O tubal ligation (Unknown) H/O: (~1995) Family History Family History Father Family history of coronary artery disease Acute myocardial infarction Mother Family history of scoliosis Tobacco abuse Grandparent No problems noted. Sibling No problems noted. Other Family history of arthritis Family history of cardiovascular disease Hypertension Social History Social History Social History: Caffeine- Smoking packs per day: 0.5 Smoking cigarettes per day: 10.0 Years smoked: 34 Smoking pack-years: 17.00 Smoking status: Former smoker Tobacco type: cigarettes and e-cigarettes/vaping Second hand tobacco smoke exposure: Yes Smoking end date: 12/03/20 Additional smoking assessment comments: STOPPED CIGARETTES 2019, CURRENT VAPE USER Alcohol intake: current Alcohol use details: RARE Substance use: current Substance use type: marijuana Other substance usage details: 3-4 TIMES A DAY Do You Feel Safe in your Home?: Yes Lack of Transportation: No Lack of Food: Never True Current Housing: I Have Housing Concerned About Future Housing: No Difficulty Paying Gas/Electric Bills: No Difficulty Paying for Meds: No Currently Unemployed: No Education: High School Diploma/GED Difficulty w/ Childcare or Family Care: No Living arrangements: with family Additional living arrangements comments: Occupation/Education: unemployed Gender identity (if verbalized by the patient): Female Sexual Orientation (if Verbalized by the Patient): Straight or Heterosexual Agree to blood products: Yes Comments At the time of my signature, I reviewed and agree with the nursing past medical, surgical, social, and family history. There is no relevant family history pertinent to the patient complaint. Exam Narrative: General: Well-developed, well nourished, in no apparent distress Head: Normocephalic, atraumatic Eyes: Pupils equally round and reactive to light bilaterally, EOM intact, sclera and conjunctive clear, no discharge, lids normal Ears: Right TMs intact and clear, left TM intact, bulging, congested, ear canals clear, no drainage, grossly hearing normal. Nose: Nares patent, no discharge, no inflammation, no sinus tenderness. Mouth: Oral pharynx without lesions or masses, good dentition, MMM. Neck: Supple, trachea midline, no enlargement of anterior or posterior cervical nodes, no thyroid masses or goiter palpable. Cardio: Regular rate and rhythm, s1 and s2 normal, no murmur appreciated. Resp: Clear to auscultation bilaterally, no rhonchi, rales, wheezing or rubs Course Course Emergency Course: Portions of this record may have been created with voice recognition software. Level of Care: Express Care Visit Vital Signs Vital signs: Vital signs reviewed Medical Decision Making [facility] Narrative Medical decision making narrative: At the time of visit patient is resting comfortably on the exam table. Patient appears to be nontoxic. Plan: I suspect patient has left otalgia/post auricle lymphadenopathy. Prescription for prednisone was sent to the pharmacy. No sign of infection. Supportive measures were discussed with the patient and they voiced understanding discharge instructions and agrees to treatment plan. Return precautions reviewed Differential Diagnosis Differential Diagnosis: Otitis media, otitis externa, eustachian tube dysfunction, cerumen impaction, upper respiratory infection, serous otitis Discharge Plan Discharge Clinical Impression: Acute pain of left ear, Posterior auricular pain of left ear Patient Disposition: Home, Self-Care Condition: Stable Instructions: Antibiotic Form, Earache (ED) Additional Instructions: Take any prescribed medications only as directed- Tylenol/motrin as needed for pain May use heating pad to alleviate pain Avoid bottle propping if ear infection in . If you get recurrent ear infections it may be warranted to follow up with ENT. Follow up with your PCP in 3-5 days if symptoms persist. Patient Language: Mongolian Prescriptions: New prednisone 20 mg tablet 40 mg PO DAILY 5 Days Qty: 10 0RF No Action omeprazole 20 mg capsule,delayed release(DR/EC) 20 mg PO DAILY Qty: 90 1RF trazodone 100 mg tablet 100 mg PO QHS PRN (Reason: sleep) Qty: 30 2RF alprazolam [Xanax] 0.25 mg tablet 0.25 mg PO DAILY Qty: 30 0RF venlafaxine 100 mg tablet 100 mg PO DAILY Qty: 90 0RF meloxicam 15 mg tablet See Rx Instructions .ROUTE .COMPLEX Qty: 90 1RF Dose Instruction: TAKE 1 TABLET BY MOUTH DAILY Rx Instructions: TAKE 1 TABLET BY MOUTH DAILY simvastatin 40 mg tablet See Rx Instructions .ROUTE .COMPLEX Qty: 90 1RF Dose Instruction: TAKE 1 TABLET BY MOUTH EVERY DAY AT BEDTIME Rx Instructions: TAKE 1 TABLET BY MOUTH EVERY DAY AT BEDTIME amlodipine 10 mg tablet See Rx Instructions .ROUTE .COMPLEX Qty: 90 1RF Dose Instruction: TAKE 1 TABLET BY MOUTH DAILY Rx Instructions: TAKE 1 TABLET BY MOUTH DAILY Follow-up/Referrals: Jaspal Iglesias APRN [Primary Care Provider] - Time of Disposition: 14:07 Quality NIHSS Nursing Documentation ED NIHSS nursing documentation: reviewed/agree
[2024-12-24 13:57] VITALS: BP 136/87; PULSE 95; RESP 18; TEMP 36.8; O2SAT 96
== END 2024-12-24 14:15 | disposition home or self-care (01) ==
PROVIDERS: Emergency Provider Nurse Practitioner Family; PCP Nurse Practitioner
DX: H92.02 Otalgia, left ear (principal); F17.290 Nicotine dependence, other tobacco product, uncomplicated; M79.7 Fibromyalgia; E66.01 Morbid (severe) obesity due to excess calories; Z68.37 Body mass index [BMI] 37.0-37.9, adult; I10 Essential (primary) hypertension; M47.22 Other spondylosis with radiculopathy, cervical region; M41.9 Scoliosis, unspecified; K21.9 Gastro-esophageal reflux disease without esophagitis; E78.00 Pure hypercholesterolemia, unspecified; F41.8 Other specified anxiety disorders
CPT/HCPCS: 99213; G0463

== ENCOUNTER 2025-01-21 12:46 | Emergency (ER) | payer MEDICARE, SELFPAY ==
[2025-01-21 12:58] VITALS: BP 144/89; PULSE 87; RESP 20; TEMP 36.6; O2SAT 98
--- NOTE | 2025-01-21 13:10 | ED_ITS ---
HPI - General Adult General Stated complaint: Bumps On Left Side Of Head Time Seen by Provider: 01/21/25 13:15 Source: patient Mode of arrival: ambulatory Limitations: no limitations History of Present Illness HPI narrative: 59-year-old female presents concern for bumps on left side of her head left ear pain for over a month. Reports she was given a steroid for ear pain and lymphadenopathy 1 month ago, reports that did not help her symptoms. She reports she did call her primary care doctor who called her on Augmentin which also did not help. She denies any drainage from the ear. She reports history of chronic sinus problems for which she had surgery. She denies any current fevers, chills, sweats. Reports she feels like her vision on her left side has changed. She denies any redness, drainage from left eye. I reports the bump sore initially on her scalp and now she has 1 on her forehead near her hairline. MD complaint: Bumps on her head Related Data Allergies Allergy/AdvReac Type Severity Reaction Status Date / Time lamotrigine Allergy Unknown RASH Verified 01/21/25 12:54 risperidone Allergy Unknown rash Verified 01/21/25 12:54 sulfamethizole Allergy Unknown Unknown Verified 01/21/25 12:54 sulfamethoxazole Allergy Unknown itching Verified 01/21/25 12:54 trimethoprim Allergy Unknown Itching Verified 01/21/25 12:54 Review of Systems Review of Systems: CONSTITUTIONAL: Denies malaise, chills, sweats, or fever. EYES: Reports left eye visual change. Denies redness, or discharge. ENT: Denies rhinorrhea, congestion, sinus pain, or sore throat. Reports chronic left ear pain RESPIRATORY: Denies cough or dyspnea. SKIN: Reports itchy tender bumps on her scalp MUSCULOSKELETAL: Denies myalgia. NEUROLOGIC: Denies numbness, weakness, or headache. All systems reviewed & are unremarkable except as noted in HPI and below PMFSH Past Medical History Medical History BMI over 35 Fibromyalgia Tobacco abuse Sprain of deltoid ligament of left ankle, initial encounter Sleep apnea in adult RLQ abdominal pain Right ankle instability Peroneal tendinitis of right lower extremity Patellar tendinitis of right knee Paronychia of finger of right hand Pain of left clavicle Other specified depressive episodes Other chronic pain Obesity, unspecified (12/04/16) Nasal sore Morbid (severe) obesity due to excess calories (09/04/16) Left elbow pain Internal derangement of right knee (10/31/15) Hyperlipidemia, unspecified History of shingles Frequent headaches Encounter for other specified surgical aftercare Effusion of right knee Dietary counseling and surveillance (08/10/15) Depression with anxiety Colon cancer screening Chronic pain of right ankle Chondromalacia of left knee Breast cancer screening Benign essential hypertension Atelectasis of both lungs Aftercare following surgery of the musculoskeletal system Acute pain of left shoulder Rupture of ulnar collateral ligament of thumb Rupture of UCL of left thumb Complete tear of ligament of thumb Vitamin D deficiency Intermittent low back pain Cervical spondylosis with radiculopathy Anxiety Wears glasses Impingement syndrome of right shoulder Right-sided low back pain with sciatica Depression Bulging of intervertebral disc between L4 and L5 Scoliosis Cervical vertebral fusion GERD (gastroesophageal reflux disease) Sleep apnea Hypercholesterolemia HTN (hypertension) Fibromyalgia Migraines Deviated nasal septum Surgical History Surgical History History of thumb surgery History of nasal septoplasty (~11/2014) History of right knee surgery (~10/2015) Right knee arthroscopy with major synovectomy, chondroplasty, and lateral patellar release. History of left knee surgery (~08/2018) Chondroplasty of the patella, trochlea, and medial femoral condyle, Lateral r etinacular release. History of fusion of cervical spine (~2007) H/O colonoscopy with polypectomy (~11/2019) Dr Haley at [place] Hx of cholecystectomy (~2011) H/O tubal ligation (Unknown) H/O: (~1995) Family History Family History Father Family history of coronary artery disease Acute myocardial infarction Mother Family history of scoliosis Tobacco abuse Grandparent No problems noted. Sibling No problems noted. Other Family history of arthritis Family history of cardiovascular disease Hypertension Social History Social History Social History: Caffeine- Smoking packs per day: 0.5 Smoking cigarettes per day: 10.0 Years smoked: 34 Smoking pack-years: 17.00 Smoking status: Former smoker Tobacco type: cigarettes and e-cigarettes/vaping Second hand tobacco smoke exposure: Yes Smoking end date: 12/03/20 Additional smoking assessment comments: STOPPED CIGARETTES 2019, CURRENT VAPE USER Alcohol intake: current Alcohol use details: RARE Substance use: current Substance use type: marijuana Other substance usage details: 3-4 TIMES A DAY Do You Feel Safe in your Home?: Yes Lack of Transportation: No Lack of Food: Never True Current Housing: I Have Housing Concerned About Future Housing: No Difficulty Paying Gas/Electric Bills: No Difficulty Paying for Meds: No Currently Unemployed: No Education: High School Diploma/GED Difficulty w/ Childcare or Family Care: No Living arrangements: with family Additional living arrangements comments: Occupation/Education: unemployed Gender identity (if verbalized by the patient): Female Sexual Orientation (if Verbalized by the Patient): Straight or Heterosexual Agree to blood products: Yes Comments At time of signature, agree with nursing past medical, surgical, social and family history. There is no relevant family history pertinent to the presenting complaint Exam Narrative: GENERAL: Well-appearing, well-nourished, and in no acute distress. HEAD: Normocephalic, atraumatic. EYES: PERRLA, sclera clear, and EOMI. No nystagmus. ENT: Nares clear, turbinates pink, no rhinorrhea or epistaxis. Mucous membranes moist. TM pearly luo with sharp light reflex bilaterally; no tragal tenderness. Oropharynx without erythema or lesions. Tonsils not enlarged and without exudate. NECK: Supple. No lymphadenopathy. CHEST: No respiratory distress. Speaks in full sentences. HEART: Regular rate and rhythm. SKIN: Warm, dry. Very mild erythema at the 3 sites the patient says she feels a bump on her scalp, no palpable nodules noted. No pre or postauricular erythema, edema, induration or tenderness. NEURO: Alert and oriented x3. No focal deficits. Cranial nerves II through XII grossly intact PSYCH: Normal mood and affect Course Course Emergency Course: Patient is aware of diagnosis, understands and agrees to treatment plan. Anticipatory guidance given. Patient agrees to follow-up as directed and is aware of reasons to seek care at the emergency department. Portions of this record may have been created with voice recognition software Level of Care: Express Care Visit Vital Signs Vital signs: Vital Signs Temperature 97.9 F 01/21/25 12:58 Pulse Rate 87 01/21/25 12:58 Respiratory Rate 20 01/21/25 12:58 Blood Pressure 144/89 H 01/21/25 12:58 Pulse Oximetry 98 01/21/25 12:58 Oxygen Delivery Room Air 01/21/25 12:58 Temperature 97.9 F 01/21/25 12:58 Pulse Rate 87 01/21/25 12:58 Respiratory Rate 20 01/21/25 12:58 Blood Pressure 144/89 H 01/21/25 12:58 Pulse Oximetry 98 01/21/25 12:58 Oxygen Delivery Room Air 01/21/25 12:58 Reviewed. Medical Decision Making MDM Narrative Medical decision making narrative: Patient's symptoms do not appear to be caused by lymphadenopathy, no pre or postauricular irregularities noted, left, EAC and left TM are unremarkable. Thr ee point tenderness areas patient pointed out appear to be slightly erythematous, will try to treat for dermatitis and advised follow-up with primary care after 1 week of treatment. The patient was evaluated by myself in the [facility] care. History is obtained from patient who is an independent historian and physical exam was performed.? Available medical records were reviewed at this time. ? Exam findings show no acute concerns or changes; patient is non-toxic appearing and is in no distress. Patient is appropriate for outpatient treatment and follow-up. ? I have evaluated and discussed social determinants of health with the patient that could potentially impact subsequent diagnosis and treatment plans. ? Differential diagnosis and treatment plan were discussed with the patient. Patient agrees with discussion and after shared medical decision making agrees with plan of care. All questions were answered to the patient's satisfaction. Vital Signs Vital Signs: Vital Signs Temperature 97.9 F 01/21/25 12:58 Pulse Rate 87 01/21/25 12:58 Respiratory Rate 20 01/21/25 12:58 Blood Pressure 144/89 H 01/21/25 12:58 Pulse Oximetry 98 01/21/25 12:58 Oxygen Delivery Room Air 01/21/25 12:58 Temperature 97.9 F 01/21/25 12:58 Pulse Rate 87 01/21/25 12:58 Respiratory Rate 20 01/21/25 12:58 Blood Pressure 144/89 H 01/21/25 12:58 Pulse Oximetry 98 01/21/25 12:58 Oxygen Delivery Room Air 01/21/25 12:58 Critical Care Time Critical Care Time Critical Care Time: No Discharge Plan Discharge Clinical Impression: Dermatitis Patient Disposition: Home Condition: Stable Instructions: Dermatitis (ED) Additional Instructions: 1) Please follow-up with your primary care doctor in the next 1-2 days. 2) If you have any worsening of symptoms or any other urgent concerns please go to the ER. 3) Please take medications as prescribed and continue taking your home medications as usual. 4) Please read and follow information included in discharge instructions. Patient Language: Liberian Prescriptions: New triamcinolone acetonide 0.1 % cream 1 applic TOPICAL BID 7 Days Qty: 80 0RF No Action omeprazole 20 mg capsule,delayed release(DR/EC) 20 mg PO DAILY Qty: 90 1RF trazodone 100 mg tablet 100 mg PO QHS PRN (Reason: sleep) Qty: 30 2RF alprazolam [Xanax] 0.25 mg tablet 0.25 mg PO DAILY Qty: 30 0RF venlafaxine 100 mg tablet 100 mg PO DAILY Qty: 90 0RF meloxicam 15 mg tablet See Rx Instructions .ROUTE .COMPLEX Qty: 90 1RF Dose Instruction: TAKE 1 TABLET BY MOUTH DAILY Rx Instructions: TAKE 1 TABLET BY MOUTH DAILY simvastatin 40 mg tablet See Rx Instructions .ROUTE .COMPLEX Qty: 90 1RF Dose Instruction: TAKE 1 TABLET BY MOUTH EVERY DAY AT BEDTIME Rx Instructions: TAKE 1 TABLET BY MOUTH EVERY DAY AT BEDTIME amlodipine 10 mg tablet See Rx Instructions .ROUTE .COMPLEX Qty: 90 1RF Dose Instruction: TAKE 1 TABLET BY MOUTH DAILY Rx Instructions: TAKE 1 TABLET BY MOUTH DAILY Follow-up/Referrals: Jaspal Iglesias APRN [Primary Care Provider] - 1 Week (Patient was seen for bumps on her scalp for more than a month. She is also reporting chromic left ear pain. See my note, rudolph f/u with PCP) Time of Disposition: 13:22
== END 2025-01-21 13:30 | disposition home or self-care (01) ==
PROVIDERS: Emergency Provider Nurse Practitioner; PCP Nurse Practitioner
DX: L30.9 Dermatitis, unspecified (principal); I10 Essential (primary) hypertension; E78.00 Pure hypercholesterolemia, unspecified; M79.7 Fibromyalgia; E66.01 Morbid (severe) obesity due to excess calories; Z68.34 Body mass index [BMI] 34.0-34.9, adult; K21.9 Gastro-esophageal reflux disease without esophagitis; M47.22 Other spondylosis with radiculopathy, cervical region; F41.9 Anxiety disorder, unspecified; F32.A Depression, unspecified; F17.290 Nicotine dependence, other tobacco product, uncomplicated
CPT/HCPCS: 99213; G0463

== ENCOUNTER 2025-06-01 16:36 | Emergency (ER) | payer MEDICARE, SELFPAY ==
--- OUTSIDE RECORDS SUMMARY | 2014-09-14 04:30 | XMS_ITS | Continuity of Care Document ---
Author Organization [facility] Address [address] [place] [address] [address] [place] [address] Phone Care Team Providers Care Principal Planner Name Role Phone Tatiana REY CMPTBenjamin Unavailable Unavailable Procedures Procedure Date THERAPEUTIC EXERCISES NEUROMUSCULAR RE-ED MANUAL THERAPY FUNC ACTIVITY HOT/COLD PACK ELECTRIC STIMULATION UNATT Medications Name Dose Freq Route DOC Sep THERAPEUTIC EXERCISES NEUROMUSCULAR RE-ED MANUAL THERAPY FUNC ACTIVITY HOT/COLD PACK ELECTRIC STIMULATION UNATT Medications Name Dose Freq Route DOC Sep THERAPEUTIC EXERCISES NEUROMUSCULAR RE-ED MANUAL THERAPY FUNC ACTIVITY HOT/COLD PACK ELECTRIC STIMULATION UNA Carrying, Moving And Handling Objects-Cu rrent Carrying, Moving And Handling Objects-Go al Medications Name Dose Freq Route DOC Aug THERAPEUTIC EXERCISES NEUROMUSCULAR RE-ED MANUAL THERAPY FUNC ACTIVITY HOT/COLD PACK ELECTRIC STIMULATION UNATT Medications Name Dose Freq Route DOC Aug THERAPEUTIC EXERCISES NEUROMUSCULAR RE-ED MANUAL THERAPY FUNC ACTIVITY HOT/COLD PACK ELECTRIC STIMULATION UNATT Medications Name Dose Freq Route DOC Aug THERAPEUTIC EXERCISES NEUROMUSCULAR RE-ED MANUAL THERAPY FUNC ACTIVITY HOT/COLD PACK ELECTRIC STIMULATION UNATT Medications Name Dose Freq Route DOC Aug THERAPEUTIC EXERCISES NEUROMUSCULAR RE-ED MANUAL THERAPY FUNC ACTIVITY HOT/COLD PACK ELECTRIC STIMULATION UNATT Medications Name Dose Freq Route DOC Aug PT EVALUATION THERAPEUTIC EXERCISES MANUAL THERAPY FUNC ACTIVITY Carrying, Moving And Handling Objects-Cu rrent Carrying, Moving And Handling Objects-Go al Medications Name Dose Freq Route DOC Aug Pain Assess Positive -07/22 DOC 2013 BMI High F/U Plan DOC Functional Outcome Assessmen t documented, deficits identified, treatment plan es Advance Directives Directive Yes / No Effective Date File Name No Information Encounters Encounter Description Practice Location Reason(s) For Visit Diagnoses Date Provider Providers Copied on Encounter [facility] [address], [id number], tel:[phone] [place] No Information Dec-0 3-201 4 Mumiguell Benjamin. [address] [place] [address], . tel: [phone] Referring Provider: Tari Roman, [address], [place], [address]. tel:[phone] [facility] [address], [id number], tel:[phone] [place] No Information Dec-0 1-201 4 Muehl Benjamin. [address] [facility] [address], [place], [facility], . tel:[phone] Referring Provider: Tari Roman, [address], [place], [address]. tel:[phone] [facility] [address], [place], [place], [id number], [place] tel:[phone] [place] No Information 4 Muehl Benjamin. [address] [place] [address], [address], [place], [facility], . tel: [phone] Referring Provider: Tari Roman, [address], [place], [address]. tel:[phone], [place], [place], [id number], [place] tel:[phone] [place] No Information 4 Muehl Benjamin. [address] [place] [address], [address], [place], [place], [facility] [place], . tel: [phone] Referring Provider: Tari Roman, [address], [place], [address]. tel:[phone] [facility] [address], [place], [place], [id number], [place] tel:[phone] [place] No Information 0 4 Muehl Benjamin. [address] [place] [address], [address], [place], [place], [facility] [place], [place]. tel: [phone] Referring Provider: Tari Roman, [address], [place], [address]. tel:[phone] [facility] [address], [place], [place], [id number], [place] tel:[phone] [place] No Information 9 4 Muehl Benjamin. [address] [place] [address], [address], [place], [place], [facility] [place], . tel: [phone] Referring Provider: Tari Roman, [address], [place], [address]. tel:[phone] [facility] [address], [place], [place], [id number], [place] tel:[phone] [place] No Information 4 Tatiana Alexander. [address] [facility], [address], [place], [address], . tel:[phone] Referring Provider: Tari Roman, [address], [place], [address]. tel:[phone] [facility], [address] [facility] [address], [place], [place], [id number], tel:[phone] [place] Pain in thoracic spine 0201 4 Tatiana Alexander. [address] [facility], [address], [place], [address], . tel:[phone] Referring Provider: Tari Roman, [address], [place], [address]. tel:[phone] Family History Family Member Type Diagnosis Age At Onset No Information Payers Payer name Insurance type Covered constitution party ID Authoriza tirobin(s) [place] [id number] POC [id number] Social History Type Description Quantity Date Captured Comments Sex Female Smoking Status No Information Chief Complaint And Reason For Visit No Information Reason For Referral Reason For Referral No Information History Of Present Illness Encounter Date Complaint History Of Prese nt Illness No Information Functional Status Date Functional Assessmen t No Information Instructions Date Instruction Additional Infor mation No Information Assessments Type Assessment Date No Information Patient Care Teams Name Effective Dates (start - stop) Status Members No Information
--- NOTE | ~2025-06-01 | CT_ITS ---
EXAMINATION: CT BRAIN W/O DATE: 06/01/2025 20:07 INDICATION: Left-sided headache. TECHNIQUE: Computed tomography (CT) of the head was performed without intravenous contrast. The dose-length product was 605.33 mGy-cm. Automated exposure control and iterative reconstruction technique were employed. COMPARISON: No prior studies for comparison. FINDINGS: Normal brain parenchymal volume for age. Normal luo-white differentiation. No acute intracranial hemorrhage, infarction, mass or mass effect. No ventriculomegaly or midline shift. Midline sagittal images demonstrate a normal corpus callosum, craniovertebral junction and sella turcica. Basilar cisterns are patent. Paranasal sinuses and mastoids are pneumatized. No depressed skull fractures. IMPRESSION: 1. No acute intracranial abnormality. Reviewed, dictated and finalized at location A.
--- OUTSIDE RECORDS SUMMARY | 2025-06-01 16:40 | XMS_ITS | Clinical Summary ---
Author Organization [facility] Address [address], [address] [address] Phone Care Team Providers Care Used Car Salesperson Name Role Phone Yeny Beverly MD Primary Care Provider [phone] Medications dicyclomine (BENTYL) 20 MG Tablet Take 1 Tab by mouth every 6 hours as needed (diarrhea). 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 Gender Identity Not on file Sexual Orientation Not on file Plan of Treatment Health Maintenance Due Date Last Done Comments Hepatitis C Virus (HCV) Screening 1967 TdaP Immunization 1967 Hepatitis B Immunization (1 of 3 - 19+ 3-dose series) 1986 Pap Smear 1988 Cervical Cancer Screening (CCS) 1997 HPV/Cotest 1997 Cologuard 2012 Immunochemical Fecal Occult Blood 2012 Pneumococcal Immunization (5 0+ years) (1 of 1 - PCV) 2017 Zoster Immunization (1 of 2) 2017 SARS-COV-2 Immunization (1 - 2023- season) 2024 Colonoscopy 12/09/2024 12/09/2019 Colorectal Cancer Screening 12/09/2024 Influenza Immunization (#1) 2025 Respiratory Syncytial Virus (RSV) Immunization (Adult) (1 - 1-dose 75+ series) 2042 Human Papillomavirus (HPV) Immunization Aged Out No longer eligible b ased on patient's age to complete this topic Meningococcal Immunization (ACWY) Aged Out No longer eligible based on patient's age to complete this topic Rotavirus Immunization Aged Out No lo nger eligible based on patient's age to complete this topic Procedures Procedure Name Priority Date/Time Associated Diagnosis Comments COLONOSCOPY Routine 12/09/2019 from Last 3 Months or Most Recently Relevant to Health Maintenance Results * COLONOSCOPY (12/09/2019) James Haley DO PROCEDURE/MINOR SURGICAL ORDERA BLES Final Result from Last 3 Months or Most Recently Relevant to Health Maintenance Insurance MEDICARE C [employer] Care Teams Used Car Salesperson Relationship Specialty Start Date End Date Yeny Beverly MD [phone] [place] [address] PCP - General Family Medicine 10/04/19
[2025-06-01 16:48] VITALS: BP 139/94; PULSE 90; RESP 16; TEMP 36.7; O2SAT 98
--- NOTE | 2025-06-01 18:01 | PC.NURSE ---
visual acuity both eyes: 20/40 right eye: 20/30 left eye: 20/50
--- NOTE | 2025-06-01 19:07 | ED.SKABFB ---
HPI - Skin/Abscess/Foreign Bdy General Chief complaint: Skin/Abscess/Foreign Body <Eli Sanchez PA-C - Last Filed: 06/01/25 20:19> Stated complaint: Knot left side of head since January-GUERRERO <Eli Sanchez PA-C - Last Filed: 06/01/25 20:19> Time Seen by Provider: 06/01/25 18:35 <Eli Sanchez PA-C - Last Filed: 06/01/25 20:19> History of Present Illness HPI narrative: 59-year-old female with reported history of anxiety, depression, fibromyalgia presents emergency department with spouse at bedside for left-sided headache and ?bumps? to her scalp since January of 2025. Patient states in January she woke up from sleep after having and nightmare. She states she felt her body shaking and then her body ?shut down?. She states since then she has noticed some bumps to the left parietal scalp. She states the original but has since resolved but now she has a tender bump behind her left ear and to her left hairline. She states she has had associated left-sided headaches are behind her left eye and radiates down the left side of her head into the back of her head. She reports associated left-sided blurred vision. She states her symptoms are worse with bright lights and when she is reading. She denies head injury or trauma. She states she went to [facility] at the onset of her symptoms and had a CT brain which was reportedly negative. She states she has also follow-up with her PCP several times. Per chart review she was seen in February of 2025 and had a normal ESR at that time. She was started on indomethacin for concerns for a spike headache. She states this did not help her sx. She has also been evaluated at urgent care and trialed on prednisone due to concerns for lymphadenopathy without improvement. She then was seen again in urgent care in January and trialed on triamcinolone for concerns for a dermatitis. She then saw her PCP on 05/25 and was advised to come to the ED at that time for further evaluation however patient did not present until today. She states her PCP had ordered an outpatient CT scan earlier this month however was canceled due to radiology shortage. She is now scheduled for an outpatient CT later this month. Patient also notes she has been evaluated twice by her ext js developer with reportedly normal exams. Patient states she is worried she may have temporal arteritis. Additionally during history taking patient became tearful and states that her daughter 3 years ago after being found at a drug dealer's house. Patient denies head injury or trauma, focal numbness or weakness, fevers. <Eli Sanchez PA-C - Last Filed: 06/01/25 20:19> Related Data Allergies/Adverse reactions: Allergies Allergy/AdvReac Type Severity Reaction Status Date / Time lamotrigine Allergy Unknown RASH Verified 05/25/25 09:01 risperidone Allergy Unknown rash Verified 05/25/25 09:01 sulfamethizole Allergy Unknown Unknown Verified 05/25/25 09:01 sulfamethoxazole Allergy Unknown itching Verified 05/25/25 09:01 trimethoprim Allergy Unknown Itching Verified 05/25/25 09:01 <Eli Sanchez PA-C - Last Filed: 06/01/25 20:19> Review of Systems Review of Systems: All systems reviewed & are unremarkable except as noted in HPI and below <Eli Sanchez PA-C - Last Filed: 06/01/25 20:19> PMFSH Past Medical History Medical History: Medical History BMI over 35 Fibromyalgia Tobacco abuse Sprain of deltoid ligament of left ankle, initial encounter Sleep apnea in adult RLQ abdominal pain Right ankle instability Peroneal tendinitis of right lower extremity Patellar tendinitis of right knee Paronychia of finger of right hand Pain of left clavicle Other specified depressive episodes Other chronic pain Obesity, unspecified (12/04/16) Nasal sore Morbid (severe) obesity due to excess calories (09/04/16) Left elbow pain Internal derangement of right knee (10/31/15) Hyperlipidemia, unspecified History of shingles Frequent headaches Encounter for other specified surgical aftercare Effusion of right knee Dietary counseling and surveillance (08/10/15) Depression with anxiety Colon cancer screening Chronic pain of right ankle Chondromalacia of left knee Breast cancer screening Benign essential hypertension Atelectasis of both lungs Aftercare following surgery of the musculoskeletal system Acute pain of left shoulder Rupture of ulnar collateral ligament of thumb Rupture of UCL of left thumb Complete tear of ligament of thumb Vitamin D deficiency Intermittent low back pain Cervical spondylosis with radiculopathy Anxiety Wears glasses Impingement syndrome of right shoulder Right-sided low back pain with sciatica Depression Bulging of intervertebral disc between L4 and L5 Scoliosis Cervical vertebral fusion GERD (gastroesophageal reflux disease) Sleep apnea Hypercholesterolemia HTN (hypertension) Fibromyalgia Migraines Deviated nasal septum <Eli Sanchez PA-C - Last Filed: 06/01/25 20:19> Surgical History Surgical History: Surgical History History of thumb surgery History of nasal septoplasty (~11/2014) History of right knee surgery (~10/2015) Right knee arthroscopy with major synovectomy, chondroplasty, and lateral patellar release. History of left knee surgery (~08/2018) Chondroplasty of the patella, trochlea, and medial femoral condyle, Lateral retinacular release. History of fusion of cervical spine (~2007) H/O colonoscopy with polypectomy (~11/2019) Dr Haley at [facility] of cholecystectomy (~2011) H/O tubal ligation (Unknown) H/O: (~1995) <Eli Sanchez PA-C - Last Filed: 06/01/25 20:19> Family History Family History: Family History Father Family history of coronary artery disease Acute myocardial infarction Mother Family history of scoliosis Tobacco abuse Grandparent No problems noted. Sibling No problems noted. Other Family history of arthritis Family history of cardiovascular disease Hypertension <Eli Sanchez PA-C - Last Filed: 06/01/25 20:19> Social History Social History: Social History Social History: Caffeine- Smoking packs per day: 0.5 Smoking cigarettes per day: 10.0 Years smoked: 34 Smoking pack-years: 17.00 Smoking status: Former smoker Tobacco type: cigarettes and e-cigarettes/vaping Second hand tobacco smoke exposure: Yes Smoking end date: 12/03/20 Additional smoking assessment comments: STOPPED CIGARETTES 2019, CURRENT VAPE USER Alcohol intake: current Alcohol use details: RARE Substance use: current Substance use type: marijuana Other substance usage details: 3-4 TIMES A DAY Do You Feel Safe in your Home?: Yes Lack of Transportation: No Lack of Food: Never True Current Housing: I Have Housing Concerned About Future Housing: No Difficulty Paying Gas/Electric Bills: No Difficulty Paying for Meds: No Currently Unemployed: No Education: High School Diploma/GED Difficulty w/ Childcare or Family Care: No Living arrangements: with family Additional living arrangements comments: Occupation/Education: unemployed Gender identity (if verbalized by the patient): Female Sexual Orientation (if Verbalized by the Patient): Straight or Heterosexual Agree to blood products: Yes <Eli Sanchez PA-C - Last Filed: 06/01/25 20:19> Exam Narrative: GENERAL: Well-appearing, well-nourished, and in no acute distress. HEAD: Normocephalic, atraumatic. EYES: PERRLA and EOMI. No conjunctival or scleral injection. Left eye pressure is 20 mmHg ENT: Nares clear, no rhinorrhea or epistaxis. Mucous membranes moist. Bilateral TMs are luo nonbulging with normal canals. No auricular lymphadenopathy NECK: Supple. No nuchal rigidity CHEST: Clear to auscultation. No respiratory distress. HEART: Regular rate and rhythm. No murmur heard. Normal peripheral pulses. ABDOMEN: Soft, nontender, nondistended, normal active bowel sounds. EXTREMITIES: Normal range of motion. No edema. SKIN: Small pinpoint pustule noted to the left hairline. No significant surrounding warmth, erythema, no induration or fluctuation. No lesions noted to the remainder of the scalp NEURO: No focal deficits. Alert and oriented x4. Cranial nerves 2-12 are intact. Strength is 5/5 in BUE and BLE. Sensation is intact throughout. Normal [id number]. No pronator drift. <Eli Sanchez PA-C - Last Filed: 06/01/25 20:19> Course OFFICE AUDITOR/PA Physician Supervision i have reviewed the notes , assisted in the management <Dioni Rhodes MD - Last Filed: 06/01/25 21:20> Vital Signs Vital signs: Vital Signs Temperature 36.7 C 06/01/25 16:48 Pulse Rate 90 06/01/25 16:48 Respiratory Rate 16 06/01/25 16:48 Blood Pressure 139/94 H 06/01/25 16:48 Pulse Oximetry 98 06/01/25 16:48 Oxygen Delivery Room Air 06/01/25 16:48 Temperature 36.7 C 06/01/25 16:48 Pulse Rate 85 06/01/25 20:41 Respiratory Rate 16 06/01/25 20:41 Blood Pressure 119/84 06/01/25 20:41 Pulse Oximetry 95 06/01/25 20:41 Oxygen Delivery Room Air 06/01/25 16:48 <Eli Sanchez PA-C - Last Filed: 06/01/25 20:19> Vital Signs Temperature 36.7 C 06/01/25 16:48 Pulse Rate 90 06/01/25 16:48 Respiratory Rate 16 06/01/25 16:48 Blood Pressure 139/94 H 06/01/25 16:48 Pulse Oximetry 98 06/01/25 16:48 Oxygen Delivery Room Air 06/01/25 16:48 Temperature 36.7 C 06/01/25 16:48 Pulse Rate 85 06/01/25 20:41 Respiratory Rate 16 06/01/25 20:41 Blood Pressure 119/84 06/01/25 20:41 Pulse Oximetry 95 06/01/25 20:41 Oxygen Delivery Room Air 06/01/25 16:48 <Dioni Rhodes MD - Last Filed: 06/01/25 21:20> MDM - Skin/Abscess/Foreign Bdy MDM Narrative Medical decision making narrative: 59-year-old female with history of anxiety, depression, fibromyalgia presents emergency department for left-sided headache, vision changes and ?bumps? to the left scalp since January of 2025. See HPI for further history. Patient has been evaluated in the ED and had a reportedly negative CT scan, multiple reportedly negative optometry exam is and has been seen at urgent care and by her PCP. Her triage vital signs show a blood pressure 139/94 but are otherwise unremarkable. Patient is resting comfortably in exam bed. She is neurovascularly intact. There is a very small pinpoint pustule noted to her left hairline with no significant signs of infection. No auricular lymphadenopathy or other lesions noted scalp. ENT exam is unremarkable. Eye exam is unremarkable with normal pressure of [address] brain shows no acute intracranial findings. CBC without leukocytosis or anemia. Chemistries are unremarkable. ESR is normal at 9, low suspicion for temporal arteritis given this. Patient updated on results. She received IV fluids and headache cocktail with significant improvement in symptoms. Discussed possibility of migraine as etiology. Will provide her with Neurology follow-up given duration of headache. Discussed strict ED return precautions. Patient is agreeable to plan verbalized understanding. Discharged in stable condition. <Eli Sanchez PA-C - Last Filed: 06/01/25 20:19> Lab Data Result diagrams: 06/01/25 19:11 06/01/25 19:11 <Eli Sanchez PA-C - Last Filed: 06/01/25 20:19> Labs: Lab Results 06/01/25 Range/Units 19:11 WBC 6.2 (4.5-10.0) K/mm3 RBC 5.11 (4.2-5.4) M/mm3 Hgb 14.5 (12.0-15.0) g/dL Hct 44.1 (37.0-47.0) % MCV 86.3 (80-100) fl MCH 28.4 (26-34) pg MCHC 32.9 (32-36) g/dl RDW 13.1 (11.5-14.5) % Plt Count 205 (150-375) k/mm3 MPV 10.6 H (7.4-10.4) fl Immature Gran % (Auto) 0.3 (0-0.5) % Neut % (Auto) 84.7 H (45.5-73.1) % Lymph % (Auto) 11.0 L (18.3-44.2) % [place] % (Auto) 1.9 L (2.6-8.5) % Eos % (Auto) 1.0 (0-4.4) % Baso % (Auto) 1.1 (0.2-1.2) % Lymph # (Auto) 0.68 L (0.9-3.2) K/mm3 [place] # (Auto) 0.1 (0.1-0.6) K/mm3 Eos # (Auto) 0.1 (0-0.3) K/mm3 Baso # (Auto) 0.1 (0.0-0.1) K/mm3 Abs Immat Gran (auto) 0.02 (0.00-0.031) K/mm3 Absolute Neuts (auto) 5.2 (1.3-6.7) K/mm3 Absolute Nucleated RBC 0.000 (0.0-0.012) K/mm3 Nucleated RBC % 0.0 (0.0-0.2) % ESR 9 (0-20) mm/hr Sodium 136 L (137-145) mmol/L Potassium 4.4 (3.4-5.0) mmol/L Chloride 103 (98-107) mmol/L Carbon Dioxide 24 (22-30) mmol/L Anion Gap 9 (4-12) mmol/L BUN 13 (7-17) mg/dL Creatinine 0.85 (0.7-1.0) mg/dL Estim Creat Clear Calc 71 ml/min Estimated GFR > 60 (59 - ) Glucose 147 H (65-110) mg/dL Calcium 9.8 (8.4-10.2) mg/dL <Eli Sanchez PA-C - Last Filed: 06/01/25 20:19> Lab Results 06/01/25 Range/Units 19:11 WBC 6.2 (4.5-10.0) K/mm3 RBC 5.11 (4.2-5.4) M/mm3 Hgb 14.5 (12.0-15.0) g/dL Hct 44.1 (37.0-47.0) % MCV 86.3 (80-100) fl MCH 28.4 (26-34) pg MCHC 32.9 (32-36) g/dl RDW 13.1 (11.5-14.5) % Plt Count 205 (150-375) k/mm3 MPV 10.6 H (7.4-10.4) fl Immature Gran % (Auto) 0.3 (0-0.5) % Neut % (Auto) 84.7 H (45.5-73.1) % Lymph % (Auto) 11.0 L (18.3-44.2) % [place] % (Auto) 1.9 L (2.6-8.5) % Eos % (Auto) 1.0 (0-4.4) % Baso % (Auto) 1.1 (0.2-1.2) % Lymph # (Auto) 0.68 L (0.9-3.2) K/mm3 [place] # (Auto) 0.1 (0.1-0.6) K/mm3 Eos # (Auto) 0.1 (0-0.3) K/mm3 Baso # (Auto) 0.1 (0.0-0.1) K/mm3 Abs Immat Gran (auto) 0.02 (0.00-0.031) K/mm3 Absolute Neuts (auto) 5.2 (1.3-6.7) K/mm3 Absolute Nucleated RBC 0.000 (0.0-0.012) K/mm3 Nucleated RBC % 0.0 (0.0-0.2) % ESR 9 (0-20) mm/hr Sodium 136 L (137-145) mmol/L Potassium 4.4 (3.4-5.0) mmol/L Chloride 103 (98-107) mmol/L Carbon Dioxide 24 (22-30) mmol/L Anion Gap 9 (4-12) mmol/L BUN 13 (7-17) mg/dL Creatinine 0.85 (0.7-1.0) mg/dL Estim Creat Clear Calc 71 ml/min Estimated GFR > 60 (59 - ) Glucose 147 H (65-110) mg/dL Calcium 9.8 (8.4-10.2) mg/dL <Dioni Rhodes MD - Last Filed: 06/01/25 21:20> Discharge Plan Discharge Clinical Impression: Left-sided headache <Eli Sanchez PA-C - Last Filed: 06/01/25 20:19> Patient Disposition: Home <Eli Sanchez PA-C - Last Filed: 06/01/25 20:19> Condition: Stable <Eli Sanchez PA-C - Last Filed: 06/01/25 20:19> Instructions: Antibiotic Form, Migraine Headache (ED) <Eli Sanchez PA-C - Last Filed: 06/01/25 20:19> Additional Instructions: Please take Tylenol ibuprofen as needed for headache. Follow-up closely with your primary care provider and neurologist. Return to the emergency department if you develop significantly worsening headache, fever, focal numbness or weakness, or other concerning symptoms. <Eli Sanchez PA-C - Last Filed: 06/01/25 20:19> Patient Language: Polish <Eli Sanchez PA-C - Last Filed: 06/01/25 20:19> Prescriptions: No Action triamcinolone acetonide 0.1 % cream 1 applic TOPICAL BID 7 Days Qty: 80 0RF trazodone 100 mg tablet 100 mg PO QHS PRN (Reason: sleep) Qty: 30 2RF alprazolam [Xanax] 0.25 mg tablet 0.25 mg PO DAILY Qty: 30 0RF meloxicam 15 mg tablet See Rx Instructions .ROUTE .COMPLEX Qty: 90 1RF Dose Instruction: TAKE 1 TABLET BY MOUTH DAILY Rx Instructions: TAKE 1 TABLET BY MOUTH DAILY simvastatin 40 mg tablet See Rx Instructions .ROUTE .COMPLEX Qty: 90 1RF Dose Instruction: TAKE 1 TABLET BY MOUTH EVERY DAY AT BEDTIME Rx Instructions: TAKE 1 TABLET BY MOUTH EVERY DAY AT BEDTIME amlodipine 10 mg tablet See Rx Instructions .ROUTE .COMPLEX Qty: 90 1RF Dose Instruction: TAKE 1 TABLET BY MOUTH DAILY Rx Instructions: TAKE 1 TABLET BY MOUTH DAILY venlafaxine 100 mg tablet 100 mg PO DAILY Qty: 90 1RF omeprazole 20 mg capsule,delayed release(DR/EC) 20 mg PO DAILY Qty: 90 1RF prednisone 20 mg tablet 40 mg PO DAILY 5 Days Qty: 10 0RF <Eli Sanchez PA-C - Last Filed: 06/01/25 20:19> Follow-up/Referrals: Poppy Kaplan NP-C [Primary Care Provider, Internal Medicine] Iker Watkins MD [Physician, Neurology] <Eli Sanchez PA-C - Last Filed: 06/01/25 20:19>
[2025-06-01 19:16] LABS: Hematocrit 44.1 % (37.0-47.0); Hemoglobin 14.5 g/dL (12.0-15.0); Immature Granulocyte Percent A 0.3 % (0-0.5); Lymphocytes Absolute Auto 0.68 K/mm3 (0.9-3.2); Mean Corpuscular HGB Conc 32.9 g/dl (32-36); Mean Corpuscular Hemoglobin 28.4 pg (26-34); Mean Corpuscular Volume 86.3 fl (80-100); Nucleated Red Blood Cells Absolute Auto 0.000 K/mm3 (0.0-0.012); Nucleated Red Blood Cells Perc 0.0 % (0.0-0.2); Platelet Count Result 205 k/mm3 (150-375); Red Blood Count 5.11 M/mm3 (4.2-5.4); White Blood Count 6.2 K/mm3 (4.5-10.0)
[2025-06-01] MEDS: KETOROLAC 15 MG/ML VIAL (*BKC) IV PUSH (19:16)
[2025-06-01] MEDS: SODIUM CHLORIDE 0.9% IV 1,000 ML 999 ML IV CONT (19:16)
--- OUTSIDE RECORDS SUMMARY | 2025-06-01 19:17 | XMS_ITS | Clinical Summary ---
Author Organization [facility] Address [address], [address] [address] Phone Care Team Providers Care [employer] Dealer Name Role Phone Yeny Beverly MD Primary Care Provider [phone] Medications dicyclomine (BENTYL) 20 MG Tablet Take 1 Tab by mouth every 6 hours as needed (diarrhea). 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
[2025-06-01] MEDS: PROCHLORPERAZINE EDISYLATE 10 MG/2 ML VIAL IV PUSH (19:18)
[2025-06-01 19:27] LABS: Anion Gap 9 mmol/L (4-12); Blood Urea Nitrogen 13 mg/dL (7-17); Calcium 9.8 mg/dL (8.4-10.2); Carbon Dioxide 24 mmol/L (22-30); Chloride 103 mmol/L (98-107); Estimated CRCL calculation 71 ml/min; Estimated Glomerular Filt Rate > 60; Glucose 147 mg/dL (65-110); Potassium 4.4 mmol/L (3.4-5.0); Sodium 136 mmol/L (137-145)
[2025-06-01 20:41] VITALS: BP 119/84; PULSE 85; RESP 16; O2SAT 95
== END 2025-06-01 20:44 | disposition home or self-care (01) ==
PROVIDERS: Emergency Provider Physician Assistant; PCP Nurse Practitioner
DX: R51.9 Headache, unspecified (principal); F41.8 Other specified anxiety disorders; I10 Essential (primary) hypertension; E78.00 Pure hypercholesterolemia, unspecified; Z87.891 Personal history of nicotine dependence; E66.01 Morbid (severe) obesity due to excess calories; Z68.35 Body mass index [BMI] 35.0-35.9, adult
CPT/HCPCS: 36415; 70450; 80048; 85025; 85652; 96361; 96374; 96375; 99284; J0780; J1200; J1885; J7030

== ENCOUNTER 2025-07-06 07:28 | Outpatient (CLI) | payer MEDICARE, SELFPAY ==
--- NOTE | ~2025-07-06 | MR_ITS ---
EXAMINATION: MR brain/brain stem wo/w con DATE: 07/06/2025 08:23 INDICATION: Headache, unspecified. TECHNIQUE: Magnetic resonance imaging (MRI) of the brain and brainstem was performed without and with 20 mL MultiHance intravenous contrast. COMPARISON: Head CT 06/01/2025 FINDINGS: There are scattered areas of nonspecific increased T2-weighted signal intensity in the cerebral white matter and kyra. There is no intracranial hemorrhage, acute infarction, or abnormal intracranial mass lesion. The ventricles are normal in size. The orbits are normal. The paranasal sinuses are clear. The mastoid air cells are normal. IMPRESSION: 1. Mild nonspecific cerebral white matter disease and pontine disease, which likely represents chronic small vessel ischemic disease. Reviewed, dictated and finalized at location E. IMPRESSION: 1. Mild nonspecific cerebral white matter disease and pontine disease, which aric figueredo represents chronic small vessel ischemic disease.
== END 2025-07-06 07:29 | disposition home or self-care (01) ==
PROVIDERS: PCP Nurse Practitioner; Visit Provider Nurse Practitioner
DX: R51.9 Headache, unspecified (principal); G89.29 Other chronic pain; R90.82 White matter disease, unspecified
CPT/HCPCS: 70553; A9577

== ENCOUNTER 2025-09-17 16:20 | Emergency (ER) | payer MEDICARE, SELFPAY ==
--- NOTE | ~2025-09-17 | XR_ITS ---
EXAMINATION: XR knee LT min 4V, 09/17/2025 16:31 BUILDING SERVICES SUPERVISOR HISTORY: inferior, posterior, anterior LT knee pain, twisted 2 days COMPARISON: No comparisons available. Findings: No acute fracture or malalignment. No significant degenerative changes. Soft tissues unremarkable. Impression: No acute fracture or malalignment. Reviewed, dictated and finalized at location P. DING SERVICES SUPERVISOR Impression: No acute fracture or malalignment.
--- NOTE | 2025-09-17 16:21 | ED_ITS ---
HPI - Extremity Injury (Lower) General Chief Complaint: Extremity Injury, Lower Stated Complaint: Left Knee Pain Time Seen by Provider: 09/17/25 16:20 Source: patient and family Mode of arrival: ambulatory Limitations: no limitations History of Present Illness HPI Narrative: Hilda is a 59 year old female patient presenting to the clinic today with c/o left knee pain x 5 days. She reports on Friday she twisted her knee medially while she was in the kitchen and then she walked outside and her [place] puppy ran full sprint a hit her knee causing her next to hyperextend. Has pain to the anterior, posterior, and inferior knee joint. Pain worse with bearing weight. Does have pain with full flexion and extension of the knee. Take meloxicam daily. Has been using a compression knee brace. Rates pain 8/10 currently- shooting down to her toes and its constant. Related Data Allergies Allergy/AdvReac Type Severity Reaction Status Date / Time lamotrigine Allergy Unknown RASH Verified 09/17/25 16:24 risperidone Allergy Unknown rash Verified 09/17/25 16:24 sulfamethizole Allergy Unknown Unknown Verified 09/17/25 16:24 sulfamethoxazole Allergy Unknown itching Verified 09/17/25 16:24 trimethoprim Allergy Unknown Itching Verified 09/17/25 16:24 Review of Systems Review of Systems: Pertinent positives per HPI. Patient denies any fever, chills, rash, headache, visual changes, dizziness, cough, runny nose, sore throat, shortness of breath, chest pain, palpitations, nausea, vomiting, diarrhea, constipation, abdominal pain, or any urinary issues. [facility] Past Medical History Medical History Neck pain with history of cervical spinal surgery Pre-syncope Blurring of vision BMI over 35 Fibromyalgia Tobacco abuse Sprain of deltoid ligament of left ankle, initial encounter Sleep apnea in adult RLQ abdominal pain Right ankle instability Peroneal tendinitis of right lower extremity Patellar tendinitis of right knee Paronychia of finger of right hand Pain of left clavicle Other specified depressive episodes Other chronic pain Obesity, unspecified (12/04/16) Nasal sore Morbid (severe) obesity due to excess calories (09/04/16) Left elbow pain Internal derangement of right knee (10/31/15) Hyperlipidemia, unspecified History of shingles Frequent headaches Encounter for other specified surgical aftercare Effusion of right knee Dietary counseling and surveillance (08/10/15) Depression with anxiety Colon cancer screening Chronic pain of right ankle Chondromalacia of left knee Breast cancer screening Benign essential hypertension Atelectasis of both lungs Aftercare following surgery of the musculoskeletal system Acute pain of left shoulder Rupture of ulnar collateral ligament of thumb Rupture of UCL of left thumb Complete tear of ligament of thumb Vitamin D deficiency Intermittent low back pain Cervical spondylosis with radiculopathy Anxiety Wears glasses Impingement syndrome of right shoulder Right-sided low back pain with sciatica Depression Bulging of intervertebral disc between L4 and L5 Scoliosis Cervical vertebral fusion GERD (gastroesophageal reflux disease) Sleep apnea Hypercholesterolemia HTN (hypertension) Fibromyalgia Migraines Deviated nasal septum Surgical History Surgical History History of thumb surgery History of nasal septoplasty (~11/2014) History of right knee surgery (~10/2015) Right knee arthroscopy with major synovectomy, chondroplasty, and lateral patellar release. History of left knee surgery (~08/2018) Chondroplasty of the patella, trochlea, and medial femoral condyle, Lateral retinacular release. History of fusion of cervical spine (~2007) H/O colonoscopy with polypectomy (~11/2019) Dr Haley at [facility] of cholecystectomy (~2011) H/O tubal ligation (Unknown) H/O: (~1995) Family History Family History Father Family history of coronary artery disease Acute myocardial infarction Mother Family history of scoliosis Tobacco abuse Grandparent No problems noted. Sibling No problems noted. Other Family history of arthritis Family history of cardiovascular disease Hypertension Social History Social History Social History: Caffeine- Smoking packs per day: 0.5 Smoking cigarettes per day: 10.0 Years smoked: 34 Smoking pack-years: 17.00 Smoking status: Former smoker Tobacco type: cigarettes and e-cigarettes/vaping Second hand tobacco smoke exposure: Yes Smoking end date: 12/03/20 Additional smoking assessment comments: STOPPED CIGARETTES 2020, CURRENT VAPE USER Alcohol intake: current Alcohol use details: RARE Substance use: current Substance use type: marijuana Other substance usage details: 3-4 TIMES A DAY Lack of Transportation: No Lack of Food: Never True Current Housing: I Have Housing Concerned About Future Housing: No Difficulty Paying Gas/Electric Bills: No Difficulty Paying for Meds: No Currently Unemployed: No Education: High School Diploma/GED Difficulty w/ Childcare or Family Care: No Living arrangements: with family Additional living arrangements comments: Occupation/Education: unemployed Gender identity (if verbalized by the patient): Female Sexual Orientation (if Verbalized by the Patient): Straight or Heterosexual Agree to blood products: Yes Comments At the time of my signature, I reviewed and agree with the nursing past medical, surgical, social, and family history. There is no relevant family history pertinent to the patient complaint. Exam Narrative: General: Well-developed, well nourished, in no apparent distress Head: Normocephalic, atraumatic. Cardio: Regular rate and rhythm, s1 and s2 normal, no murmur appreciated. Resp: Clear to auscultation bilaterally, no rhonchi, rales, wheezing or rubs. Musculoskeletal: No deformity, anterior, inferior, and posterior left knee tender to palpation, anterior and posterior drawer sign negative, no crepitus palpable, pain with full flexion and extension of the left knee, grossly normal range of motion, muscle strength strong and equal, peripheral pulse strong, no edema, no cyanosis, normal gait and station Course Course Level of Care: Express Care Visit Vital Signs Vital signs: Vital Signs Temperature 36.8 C 09/17/25 16:29 Pulse Rate 96 09/17/25 16:29 Respiratory Rate 18 09/17/25 16:29 Blood Pressure 122/68 09/17/25 16:29 Pulse Oximetry 97 09/17/25 16:29 Oxygen Delivery Room Air 09/17/25 16:29 Temperature 36.8 C 09/17/25 16:29 Pulse Rate 96 09/17/25 16:29 Respiratory Rate 18 09/17/25 16:29 Blood Pressure 122/68 09/17/25 16:29 Pulse Oximetry 97 09/17/25 16:29 Oxygen Delivery Room Air 09/17/25 16:29 [facility] MDM Narrative Medical decision making narrative: At the time of visit patient is resting comfortably on the exam table. Patient appears to be nontoxic. C/o left knee pain x 5 days. She reports on Friday she twisted her knee medially while she was in the kitchen and then she walked outside and her [place] puppy ran full sprint a hit her knee causing her next to hyperextend. Has pain to the anterior, posterior, and inferior knee joint. Pain worse with bearing weight. Does have pain with full flexion and extension of the knee. Take meloxicam daily. Has been using a compression knee brace. Rates pain 8/10 currently-shooting down to her toes and its constant. Diagnostics: Left knee x-ray was negative for any fracture or malalignment. Plan: I suspect patient has an acute knee sprain/knee pain. Recommend wearing a hinged knee brace when up ambulating. May wear compression when resting. Tylenol as needed for pain. Continue taking meloxicam as prescribed. Supportive measures were discussed with the patient and they voiced understanding discharge instructions and agrees to treatment plan. Return pre cautions reviewed Differential Diagnosis Differential Diagnosis: Differential diagnostic considerations for lower extremity injury include ankle sprain/strain, acute internal derangement of knee, fracture of femur, fracture of hip, puncture wound of foot, fracture of toe, fracture of ankle, tendon rupture (achilles/patellar/quadriceps). Imaging Data Radiologist's impression: ITS Impressions Knee X-Ray 09/17/25 16:45 Impression: No acute fracture or malalignment. Discharge Plan Discharge Clinical Impression: Left knee sprain Qualifiers: Encounter type: initial encounter Involved ligament of knee: unspecified ligament Qualified Code(s): S83.92XA - Sprain of unspecified site of left knee, initial encounter Patient Disposition: Home Condition: Stable Instructions: Antibiotic Form, Knee Sprain (ED), Hinged Knee Brace (ED) Additional Instructions: X-rays negative for any sign of fracture, malalignment, or effusion. Rest, ice, elevate, and wear hinged knee brace when up ambulating Tylenol for pain as discussed. Continue Meloxicam as directed. Gradually bear weight Follow up with your PCP if symptoms persist more than 1 week. Patient Language: Slovenian Prescriptions: No Action amlodipine 10 mg tablet See Rx Instructions .ROUTE .COMPLEX Qty: 90 0RF Dose Instruction: TAKE 1 TABLET BY MOUTH DAILY Rx Instructions: TAKE 1 TABLET BY MOUTH DAILY meloxicam 15 mg tablet See Rx Instructions .ROUTE .COMPLEX Qty: 90 0RF Dose Instruction: TAKE 1 TABLET BY MOUTH DAILY Rx Instructions: TAKE 1 TABLET BY MOUTH DAILY simvastatin 40 mg tablet See Rx Instructions .ROUTE .COMPLEX Qty: 90 0RF Dose Instruction: TAKE 1 TABLET BY MOUTH EVERY DAY AT BEDTIME Rx Instructions: TAKE 1 TABLET BY MOUTH EVERY DAY AT BEDTIME venlafaxine 100 mg tablet 100 mg PO DAILY Qty: 90 1RF omeprazole 20 mg capsule,delayed release(DR/EC) 20 mg PO DAILY Qty: 90 1RF Follow-up/Referrals: Poppy Kaplan APRN [Primary Care Provider, Internal Medicine] Time of Disposition: 16:50 Quality NIHSS Nursing Documentation ED NIHSS nursing documentation: reviewed/agree
[2025-09-17 16:29] VITALS: BP 122/68; PULSE 96; RESP 18; TEMP 36.8; O2SAT 97
== END 2025-09-17 16:56 | disposition home or self-care (01) ==
PROVIDERS: Emergency Provider Nurse Practitioner Family; PCP Nurse Practitioner
DX: S83.92XA Sprain of unspecified site of left knee, initial encounter (principal); X50.1XXA Overexertion from prolonged static or awkward postures, initial encounter; F17.290 Nicotine dependence, other tobacco product, uncomplicated; F12.90 Cannabis use, unspecified, uncomplicated; I10 Essential (primary) hypertension; E78.00 Pure hypercholesterolemia, unspecified; K21.9 Gastro-esophageal reflux disease without esophagitis; M79.7 Fibromyalgia; E66.01 Morbid (severe) obesity due to excess calories; F41.9 Anxiety disorder, unspecified; F32.A Depression, unspecified
CPT/HCPCS: 73564; 99213; G0463